=== PATIENT | female | born 2005 | race Caucasian/White ===

== ENCOUNTER 2024-10-13 13:53 | Outpatient (AMB) | payer BC, SELFPAY ==
--- NOTE | 2024-10-13 14:00 | MHC.PC.OV ---
Vital Signs 10/13/24 14:08 Height 5 ft 1.61 in Weight 155 lb 6 oz BMI 28.8 BP 118/64 Blood Pressure Location Rt brachial Position Sitting Pulse 72 Pulse Source Pulse Oximeter Pulse Oximetry (%) 99 Oxygen Delivery Method Room Air Intake Visit Reasons: Est Care/ Physical request Intake Note: New patient visit Allergies Penicillins Allergy (Unknown, Verified 10/13/24 14:01) Hives Tobacco use date assessed: 10/13/24 Dental Screening Dental Screen Date: 10/13/24 Did you have a dental visit in the last 12 months?: Yes Did you have a dental problem in the last 6 months where you did not have access to dental care?: No Was dental information given to patient?: Patient has dentist HPI HPI Comments History of Present Illness Details This is a 18-year-old female with a past medical history of iron-deficiency, PCOS and generalized anxiety disorder presenting to [facility]. She is transferring from pediatrics to adult Medicine. Her last physical exam was 03/27/2024. Ubnf-[id number]-[id number] takes a multivitamin that contains iron. She has mild GI upset if she takes it on an empty stomach. She would like iron levels rechecked. Reports labs were normal at her physical exam earlier this year. Patient was followed by [facility] pediatric endocrinology for PCOS. She was treated with spironolactone which was discontinued due to dizziness and diuresis. Patient says at 1 of the last appointments her sales support consultant was talking about starting Ozempic. Patient was concerned this was due to increased weight. She admits she did put on some weight during college, but she lost much of it, and she exercises regularly and eats very well. Her other symptoms included irregular menses and acne. Her acne is pretty well-controlled, she says, despite having to stop spironolactone. She takes the control pill. She is turning 19 this month. She is not sexually active. She saw a crystal mounter when she was a teenager. This was at [facility]. Patient says she was a bit traumatized because they were trying to assess her, but it was not known at the time that she required hymenectomy, and the experience was extremely painful. She ultimately had the hymenectomy performed at [facility]. She has seen a therapist intermittently since she was 3 years old. Three weeks ago she started seeing a new therapist. She was treated with Lexapro in the past which helped, but it caused weight gain. She is not interested in daily medications at this time. She requests anxiety medication for an upcoming flight to [place]. Her anxiety causes physical symptoms such as nausea and sometimes vomiting, and she is very anxious about throwing up. She sees [facility] for acne. 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 Patient was having some stomach upset recently however she determined she was having too much fiber and decreased the amount in her diet with success. 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 She received a flu vaccine in August. ROS: Constitutional: No unexplained weight loss, fever, chills, fatigue or night sweats. Respiratory: No shortness of breat Cardiovascular: No chest pain Skin: +acne Psychiatric: No depression. See HPI Physical exam: Constitutional: Alert, in no distress. Neck: Supple, Full range of motion. No lymphadenopathy. No palpable thyroid masses. Respiratory: Clear to auscultation. Cardiovascular: S1 S2 regular. No murmurs Extremities: Warm and well perfused. No clubbing, cyanosis or edema. 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 AIDEN (generalized anxiety disorder) PCOS (polycystic ovarian syndrome) Low iron Surgical History (Updated 10/13/24 @ 15:00 by CARLOS MANUEL Tinajero) H/O wisdom tooth extraction H/O knee surgery History of hymenectomy History of ankle surgery H/O wrist surgery Family History (Updated 10/13/24 @ 15:01 by CARLOS MANUEL Tinajero) Maternal Grandmother Anxiety Mother Anxiety Maternal Aunt Congenital heart defect Maternal Grandfather Heart attack Family/Other Breast cancer Other FH: mental illness Social History (Updated 10/13/24 @ 14:03 by Lorene Oconnell CMA) Housing: House Alcohol intake: current Patient Tobacco Use Status: Never used Tobacco e-Cigarette/Vaping Use: Never Used Second Hand Smoke Exposure: No service: No Current occupational status: student Cognitive needs: No Hearing needs: Yes (Hearing loss left ear) Vision needs: No Questionnaire PHQ-9 Over the last 2 weeks, how often have you been bothered by any of the following problems? 1. Little interest or pleasure in doing things: not at all 2. Feeling down, depressed, or hopeless: not at all 3. Trouble falling or staying asleep, or sleeping too much: not at all 4. Feeling tired or having little energy: not at all 5. Poor appetite or overeating: not at all 6. Feeling bad about yourself - or that you are a failure or have let yourself or your family down: not at all 7. Trouble concentrating on things, such as reading the newspaper or watching television: not at all 8. Moving or speaking so slowly that other people could have noticed. Or the opposite - being so fidgety or restless that you have been moving around a lot more than usual: not at all 9. Thoughts that you would be better off or of hurting yourself in some way: not at all Total score: 0 Depression Screening Interpretation: Negative Depression Screening Done: Yes 41061 - PHQ-9 Billing: Yes Source: Developed by Drs. Danial Fitzpatrick, Candi Aldana, Sundeep Yepez and colleagues, with an educational batool from [employer]. Thrive Questionnaire Date Thrive assessed: 10/06/24 I am a: Patient What is your living situation today?: I have a steady place to live Within the past 12 months, did the food you bought not last and you didn't have the money to get more?: Never true Within the past 12 months, did you worry whether your food would run out before you got money to buy more?: Never true Do you have trouble paying for medicines?: No Do you have trouble getting transportation to medical appointments?: No Do you have trouble paying your heating and electricity bill?: No Do you have trouble taking care of your child, family member or friend?: No Do you have trouble with day-to-day activities such as bathing, preparing meals, shopping, managing finances, etc.?: No Are you currently unemployed and looking for a job?: No Are you interested in more education?: Yes Please select the resources that you would like help with: None Currently or been in a relationship where the following occur: No concerns reported THRIVE Score: 0 AUDIT C Alcohol Use Questionnaire (AUDIT-C) 1. How often do you have a drink containing alcohol?: Monthly or less 2. How many drinks containing alcohol do you have on a typical day when you are drinking?: 1 or 2 3. How often do you have six or more drinks on one occasion?: Never Total Score: 1 AIDEN-7 AMB Questionnaire AIDEN-7 Date AIDEN - 7 assessed: 10/13/24 Feeling nervous, anxious, or on edge: 2 = More than half the days Not being able to stop or control worryin = Several days Worrying too much about different things: 1 = Several days Trouble relaxin = Several days Being so restless that it is hard to sit still: 0 = Not at all Becoming easily annoyed or irritable: 0 = Not at all Feeling afraid as if something awful might happen: 0 = Not at all Total AIDEN-7 score (0-4 normal; 5-9 mild; 10-14 moderate; 15-21 severe): 5 Source: Developed by Drs. Danial Fitzpatrick, Candi Aldana, Sundeep Yepez and colleagues, with an educational batool from [employer]. AIDEN-7 Assessment Billing AIDEN-7 Assessment Tool: AIDEN-7 Assessment 68129 Physical exam (Primary Care) Vital Signs: Last Vital Signs Pulse 72 10/13/24 14:08 BP 118/64 10/13/24 14:08 Pulse Ox 99 10/13/24 14:08 Oxygen Delivery Method Room Air 10/13/24 14:08 BMI result Body Mass Index 28.8 Tobacco/Smoking Status: Tobacco use Status Tobacco use date assessed 10/13/24 10/13/24 14:07 Patient Tobacco Use Status Never used Tobacco 10/13/24 14:07 e-Cigarette/Vaping Use Never Used 10/13/24 14:07 PHQ-9: PHQ-9 Score PHQ-9: Total score 0 10/13/24 14:10 Depression Screening Interpretation: Negative Thrive Assessment: Date of Thrive Assessment Date Thrive assessed 10/06/24 10/13/24 14:07 Currently or been in a relationship where the following occur: No concerns reported Coding Level of Care Code New Pt Level 4 (55981) Complex EM visit Add On G2211 Diagnoses Acne vulgaris L70.0 Enlarged vestibular aqueduct of left ear Q16.5 Flying phobia F40.243 AIDEN (generalized anxiety disorder) F41.1 PCOS (polycystic ovarian syndrome) E28.2 Low iron E61.1 Additional Codes AIDEN-7 Assessment Billing - AIDEN-7 Assessment Tool: AIDEN-7 Assessment 89512 ([id number]) PHQ-9 - 06850 - PHQ-9 Billing: Yes ([id number]) Assessment & Plan Assessment & Plan (1) Acne vulgaris: Code(s): L70.0 - Acne vulgaris Category: Medical Plan: Spironolactone discontinued due to side effects. She continues with treatment per Dermatology with topical tretinoin and clindamycin-benzoyl peroxide. She is also on the oral contraceptive pill. (2) Enlarged vestibular aqueduct of left ear: Comment: [facility] Code(s): Q16.5 - Congenital malformation of inner ear Category: Medical Plan: Followed by [facility] ENT. (3) Flying phobia: Code(s): F40.243 - Fear of flying Category: Medical Plan: Patient prescribed lorazepam 0.5-1 mg every 8-12 hours as needed. She will take the 1st dose 60 minutes before her flight. I prescribed an extra tablet that I recommended she try prior to her vacation so she can see how the medication effects her. Advised not to drive, operate heavy machinery or have alcohol the day she uses this medicine. She is traveling with family. (4) AIDEN (generalized anxiety disorder): Code(s): F41.1 - Generalized anxiety disorder Category: Medical Plan: The patient will continue therapy and follow up if symptoms remain uncontrolled and/or if she wishes to revisit daily medication for anxiety. (5) PCOS (polycystic ovarian syndrome): Code(s): E28.2 - Polycystic ovarian syndrome Category: Medical Plan: The patient is referred to adult endocrinology provider. I referred to [facility] for continuity. They will have access to her pediatric sales support consultant notes. Patient is also referred to Gynecology, Dr. Donohue. (6) Low iron: Code(s): E61.1 - Iron deficiency Category: Medical Plan: Patient is taking multivitamin plus iron. She has a lot of iron rich foods in her diet. Recheck CBC and iron studies. Plan Follow up in March 2025 for a physical exam. Orders: Orders IRON PROFILE Today E61.1 - Iron deficiency Complete Blood Count Auto Diff Today E61.1 - Iron deficiency Ferritin Today E61.1 - Iron deficiency Referrals ENGINEERING INSPECTION ASSISTANT Referral Z01.419 - Encounter for gynecological examination (general) (routine) without abnormal findings Endocrinology Referral E28.2 - Polycystic ovarian syndrome Medications: New lorazepam Take the first dose 60 minutes before flying. 0.5 - 1 mg (0.5 - 1 x 1 mg) PO Q8-12H PRN 5 tabs 0RF anxiety
[2024-10-13 14:08] VITALS: BP 118/64; PULSE 72; O2SAT 99; BMI 28.8
--- OUTSIDE RECORDS SUMMARY | 2024-10-15 15:59 | XMS_ITS ---
Author Name [facility] Organization Unknown Immunizations Vaccine Date Source Lot Number Status Influenza Inactivated/Split Preservative Free IM 08/17/2022 [facility] [id number] completed Influenza, Quadrivalent (FLU CELVAX) MDCK, Preservative Free IM 07/31/2023 [facility] [id number] completed
== END 2024-10-13 14:45 | disposition home or self-care (01) ==
PROVIDERS: PCP Physician Assistant Medical; Visit Provider Physician Assistant Medical
DX: L70.0 Acne vulgaris (principal); Q16.5 Congenital malformation of inner ear; F40.243 Fear of flying; F41.1 Generalized anxiety disorder; E28.2 Polycystic ovarian syndrome; E61.1 Iron deficiency

== ENCOUNTER → 2024-10-13 13:53 | Outpatient (BNVA) | payer BC, SELFPAY | PROVIDERS: PCP Physician Assistant Medical; Visit Provider Physician Assistant Medical | DX: L70.0 Acne vulgaris (principal); F40.243 Fear of flying; F41.1 Generalized anxiety disorder; E28.2 Polycystic ovarian syndrome; E61.1 Iron deficiency; Q16.5 Congenital malformation of inner ear | CPT/HCPCS: 96127 ==

== ENCOUNTER 2024-10-16 12:43 | Outpatient (REF) | payer BC, SELFPAY ==
[2024-10-16 14:16] LABS: MANUAL DIFF FLAG NO
[2024-10-16 14:25] LABS: Basophils Percent Auto 0.3 % (0-2); Eosinophils Absolute Auto 0.1 X10*3/uL (0.0-0.4); Eosinophils Percent Auto 0.8 % (0-4); Hematocrit 36.2 % (37.0-47.0); Hemoglobin 11.8 g/dl (12.0-16.0); Imm Gran Abs Auto 0.01 X10*3/uL (0.00-0.03); Imm Gran Pct Auto 0.2 % (0.0-0.4); Lymphocytes Absolute Auto 2.6 X10*3/uL (1.2-4.9); Lymphocytes Percent Auto 39.1 % (20-40); Mean Corpuscular HGB Conc 32.6 g/dl (31.0-35.0); Mean Corpuscular Hemoglobin 28.6 pg (27.0-33.0); Mean Corpuscular Volume 87.9 fL (80.0-98.0); Mean Platelet Volume 10.3 fL (9.4-12.3); Monocytes Absolute Auto 0.5 X10*3/uL (0.1-1.2); Monocytes Percent Auto 7.9 % (2-11); Neutrophils Absolute Auto 3.4 x10*3/uL (2.0-8.3); Neutrophils Percent Auto 51.7 % (45-73); Platelet Count 285 X10*3/uL (160-400); Red Blood Count 4.12 X10*6/uL (4.20-5.50); Red Cell Distribution Width 12.7 % (11.0-16.0); White Blood Count 6.6 X10*3/uL (4.8-10.8)
[2024-10-16 14:41] LABS: Iron 118 mcg/dL (30-160); Percent Iron Saturation 37 % (15-50); Total Iron Binding Capacity 319 mcg/dL (228-428); Unsaturated Iron Binding 201 ug/dL
[2024-10-16 14:57] LABS: Ferritin 45 ng/mL (10-122)
== END 2024-10-16 12:44 | disposition home or self-care (01) ==
LOC: HO.WFDLDS 12:43
PROVIDERS: Visit Provider Physician Assistant Medical
DX: E61.1 Iron deficiency (principal)
CPT/HCPCS: 36415; 82728; 83540; 85025

== ENCOUNTER 2024-12-01 14:27 | Outpatient (AMB) | payer BC, SELFPAY ==
--- NOTE | 2024-12-01 14:25 | MHC.PC.OV ---
Intake Visit Reasons: medication check Intake Note: follow up on prozac Allergies Penicillins Allergy (Unknown, Verified 12/01/24 14:25) Hives Tobacco use date assessed: 10/13/24 Dental Screening Dental Screen Date: 10/13/24 HPI HPI Comments History of Present Illness Details This is a 18-year-old female with a past medical history of iron-deficiency, PCOS and generalized anxiety disorder presenting to discuss anxiety medication. She endorses chronic anxiety since a young age. She has seen a therapist intermittently since she was 3 years old. She is seeing a therapist consistently now. She has been treated with Lexapro in the past, but she was concerned it may have contributed to weight gain her freshman year of college. She initially declined daily medications, but she then messaged that she would like to try starting medication again for anxiety. She was started on fluoxetine, but she experienced increased anxiety on the medication. She tapered off of it after speaking with me. She went on a trip to [place] and used lorazepam for the flights which was effective. She spoke about this all with her therapist and family, and she would like to try going back on Lexapro. She thinks her weight gain may have been related to stopping competitive sports when she started college. She is attending [employer]. 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 She message because she was having indigestion and reflux, and the triage nurse responded to her inquiry. Patient says her symptoms resolved. She thinks it was due to a change in her eating habits when she was in [place] for 12 days. ROS: Constitutional: No unexplained weight loss, fever, chills Gastrointestinal: No anorexia, nausea, vomiting or diarrhea. No abdominal pain or blood in stool. Psychiatric: No SI/HI. 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 AIDEN (generalized anxiety disorder) PCOS (polycystic ovarian syndrome) Low iron Surgical History (Updated 10/13/24 @ 15:00 by CARLOS MANUEL Tinajero) H/O wisdom tooth extraction H/O knee surgery History of hymenectomy History of ankle surgery H/O wrist surgery Family History (Updated 10/13/24 @ 15:01 by CARLOS MANUEL Tinajero) Maternal Grandmother Anxiety Mother Anxiety Maternal Aunt Congenital heart defect Maternal Grandfather Heart attack Family/Other Breast cancer Other FH: mental illness Social History (Updated 10/13/24 @ 14:03 by Lorene Oconnell CMA) Housing: House Alcohol intake: current Patient Tobacco Use Status: Never used Tobacco e-Cigarette/Vaping Use: Never Used Second Hand Smoke Exposure: No service: No Current occupational status: student Cognitive needs: No Hearing needs: Yes (Hearing loss left ear) Vision needs: No Questionnaire Thrive Questionnaire Date Thrive assessed: 10/06/24 I am a: Patient What is your living situation today?: I have a steady place to live Within the past 12 months, did the food you bought not last and you didn't have the money to get more?: Never true Within the past 12 months, did you worry whether your food would run out before you got money to buy more?: Never true Do you have trouble paying for medicines?: No Do you have trouble getting transportation to medical appointments?: No Do you have trouble paying your heating and electricity bill?: No Do you have trouble taking care of your child, family member or friend?: No Do you have trouble with day-to-day activities such as bathing, preparing meals, shopping, managing finances, etc.?: No Are you currently unemployed and looking for a job?: No Are you interested in more education?: Yes Please select the resources that you would like help with: None Currently or been in a relationship where the following occur: No concerns reported THRIVE Score: 0 AUDIT C Alcohol Use Questionnaire (AUDIT-C) 2. How many drinks containing alcohol do you have on a typical day when you are drinking?: 1 or 2 3. How often do you have six or more drinks on one occasion?: Never Total Score: 0 AIDEN-7 AMB Questionnaire AIDEN-7 Date AIDEN - 7 assessed: 10/13/24 Source: Developed by Drs. Danial Fitzpatrick, Candi Aldana, Sundeep Yepez and colleagues, with an educational batool from [employer]. Physical exam (Primary Care) Tobacco/Smoking Status: Tobacco use Status Tobacco use date assessed 10/13/24 12/01/24 14:26 Patient Tobacco Use Status Never used Tobacco 12/01/24 14:26 e-Cigarette/Vaping Use Never Used 12/01/24 14:26 Thrive Assessment: Date of Thrive Assessment Date Thrive assessed 10/06/24 12/01/24 14:26 Currently or been in a relationship where the following occur: No concerns reported Telehealth Telehealth Telehealth Platform: Telephone Location of provider rendering services: practice address Location of patient: address on file Patient Identification confirmed using: Name, : Yes Telehealth method: voice only Patient verbally consented to treatment: Yes Patient verbally consented to billing insurance company: Yes Patient informed of any privacy concerns related to visit: Yes Minutes spent on Phone/Video with Pt.: 10 Coding Level of Care Code Tele Est Pt Level 3 (30625) Complex EM visit Add On G2211 Diagnoses AIDEN (generalized anxiety disorder) F41.1 Assessment & Plan Assessment & Plan (1) AIDEN (generalized anxiety disorder): Code(s): F41.1 - Generalized anxiety disorder Category: Medical Plan Continue therapy. She is working on building a tool box for coping strategies for anxiety. She would like to retry Lexapro. We reviewed side effects, black box warning and administration. She will start 5 mg daily. We will follow up in 4-6 weeks to assess dose and efficacy. She will contact me prior to that appointment if she is having any difficulties with the medication or side effects. Medications: New escitalopram oxalate 5 mg PO DAILY 30 tabs 1RF Discontinued fluoxetine Discontinued Reason: Doctor's Order 20 mg PO QAM 90 tabs 1RF
--- OUTSIDE RECORDS SUMMARY | 2024-12-01 18:54 | XMS_ITS | Clinical Summary ---
Author Organization [facility] Address [address] [place] [address] Care Team Providers Care Team Guide Name Role Phone Unavailable Primary Care Provider Unavailabl e Immunizations Name Administration Dates Next Due Influenza Inactivated/Split Preservative Free IM 08/17/2022 Influenza, Quadrivalent (FLU CELVAX) MDCK, Preservative Free IM 07/31/2023 Social History Tobacco Use Types Packs/Day Years Used Date Smoking Tobacco: Never Assessed Sex and Gender Information Value Date Recorded Sex Assigned at Female 07/31/2023 11:52 AM EDT Gender Identity Female 07/31/2023 11:52 AM EDT Sexual Orientation Heterosexual (straight) 07/31 11:52 AM EDT Plan of Treatment Health Maintenance Due Date Last Done Comments Hepatitis C Virus Screening 2003 HIV Screening 2016 HPV Vaccines (1 - 3-dose series) 2018 DTaP/Tdap/Td Vaccines (1 - Tdap) 2022 Hepatitis B Vaccines (1 of 3 - 19+ 3-dose series) 2022 Influenza Vaccine 06/05/2024 07/31/2023, , 08/04/2021, Additional history exists COVID-19 Vaccine (1 - 2023-25 season) 2024 Pap Smear (Ages 21-65) 2024 Pneumococcal Vaccine: Pediatric (0-5 Years) and At-Risk Patients (6 to 49 Years) Aged Out No longer eligible based on patient's age to complete this topic
--- OUTSIDE RECORDS SUMMARY | 2024-12-01 18:54 | XMS_ITS | Encounter Summary ---
Author Organization [facility] Address [address] [place] [phone] Phone Care Team Providers Care Automatic Spreader Operator Name Role Phone Bailey Isaac NP Primary Care Provider [phone] Reason for Visit * Reason Comments Med Refill Encounter Details Date Type Department Care Team (Late st Contact Info) Description 01/24/2023 Refill [facility] [address] [place] [address] Bailey Isaac NP [address] [place] [address] Anxiety Social History Tobacco Use Types Packs/Day Years Used Date Smoking Tobacco: Never Alcohol Use Standard Drinks/Week Comments Never 0 (1 standard drink = 0.6 oz pur e alcohol) Hunger/Food Answer Date Recorded In the last 12 months, did y ou or your family ever eat less than you felt you should because there wasn't enough money for food? No 11/17/2021 Stable Housing Answer Date Recorded Are you worried that in the next 2 months you may not have stable housing? No 11/17/2021 Transportation Concerns Answer Date Rec orded In the last 12 months, have you or your family ever had to go without healthcare because you didn't have a way to get there? No 11/17/2021 Hazards in Home Answer Date Recorded Think about the place you li ve. Do you have problems with any of the following? Pests (mice or roaches), mold, no/not working smoke detectors, water leaks, no window guards. No 2021 Financing Utilities Answer Date Recorde d In the last 12 months, has t he electric, gas, oil, or water company threatened to shut off your services in your home? No 11/17/2021 Safety at Home Answer Date Recorded Are you or your family worried about feeling saf e in your home? No 11/17/2021 Outside Support Answer Date Recorded Do you feel that you need mo re support from other people or programs to help you care for yourself or your family? No 11/17/2021 Understanding Health Concerns Answer Da te Recorded Do you need help understandi ng your or your child's healthcare needs (diagnosis, medications, plan, etc.)? No 11/17/2021 Financing Health Concerns Answer Date R ecorded In the last 12 months, was t here a time when your child needed to see a doctor or get medications or supplies but could not because of cost? No 11/17/2021 Missing School or Work Answer Date Chip rded Did you or your child miss s chool or work because of a health problem that could have been avoided? No 11/17/2021 Comments No Sex and Gender Information Value Date Recorded Sex Assigned at Not on file Legal Sex Female 6:10 PM EDT Gender Identity Female 06/08/2021 5:55 PM EDT Sexual Orientation Straight 11/17/2021 4: 07 PM EST documented as of this encounter Miscellaneous Notes * Telephone Encounter - Bailey Isaac NP - 01/25/2023 10:59 AM EDT Rx reviewed, approved, and sent to pharmacy. * Telephone Encounter - Anat Ferrer CMA - 01/24/2023 8:17 PM EDT Request for refill on escitalopram 10 MG tablet Last refill- 09/26/22 Last med check- 02/28/22 Forward to Bobbi documented in this encounter Plan of Treatment Not on file documented as of this encounter Visit Diagnoses Diagnosis Anxiety Anxiety state, unspecified documented in this encounter Care Teams Automatic Spreader Operator Relationship Specialty Start Date End Date Bailey Isaac NP [address] [place] [address] PCP - General Pediatrics 08/26/21 11/19/24 documented as of this encounter
--- OUTSIDE RECORDS SUMMARY | 2024-12-01 18:54 | XMS_ITS | Encounter Summary ---
Author Organization [facility] Address [address] [place] [address] Phone Care Team Providers Care Application Systems Engineer Name Role Phone Bailey Isaac NP Primary Care Provider [phone] Reason for Visit * Reason Comments Med Refill Encounter Details Date Type Department Care Team (Late st Contact Info) Description 02/24/2022 Refill [facility] [address] [place] [address] Bailey Isaac NP [address] [place] [address] Anxiety Social History Tobacco Use Types Packs/Day [...] Telephone Encounter - Bailey Isaac NP - 02/24/2022 3:41 PM EDT Rx sent for 30 day supply as Radha just started the med, not sure if we will be making increases * Telephone Encounter - Yancy Hu MA - 02/24/2022 1:23 PM EDT 90 days supply request for Escitalopram Last [facility] 11/17/21 Med check 02/02/22 Last refill 02/02/22 Upcoming appt is 02/28/22 They highlighted #45 but that is a 90 days supply Please review documented in this encounter Plan of Treatment Not on file documented as of this encounter Visit Diagnoses Diagnosis Anxiety Anxiety state, unspecified documented in this encounter Care Teams Application Systems Engineer Relationship Specialty Start Date End Date Bailey Isaac NP 7 [facility] [place] [address] PCP - General Pediatrics 08/26/21 11/19/24 documented as of this encounter
--- OUTSIDE RECORDS SUMMARY | 2024-12-01 18:54 | XMS_ITS | Encounter Summary ---
Author Organization [facility] Address [address] [place] [address] Phone Care Team Providers Care Casing Mixer Name Role Phone Bailey Isaac NP Primary Care Provider [phone] Encounter Details Date Type Department Care Team (Late st Contact Info) Description 12/28/2009 Documentation [facility] Family Medicine [facility] [place] [address] Family Medicine, Physician [facility] [place], [place] [id number] Social History Tobacco Use Types Packs/Day Years Used Date Smoking Tobacco: Never Assessed Comments Unknown Sex and Gender Information Value Date Recorded Sex Assigned at Not on file Legal Sex Female 6:10 PM EDT Gender Identity Female 06/08/2021 5:55 PM EDT Sexual Orientation Straight 11/17/2021 4: 07 PM EST documented as of this encounter Plan of Treatment Not on file documented as of this encounter Visit Diagnoses Not on filedocumented in this encounter Care Teams Casing Mixer Relationship Specialty Start Date End Date Bailey Isaac NP [address] [facility] [place] [address] PCP - General Pediatrics 08/26/21 11/19/24 documented as of this encounter
--- OUTSIDE RECORDS SUMMARY | 2024-12-01 18:54 | XMS_ITS | Encounter Summary ---
Author Organization [facility] Address [address] [place] [address] Phone Care Team Providers Care Accounts Receivable Accountant Name Role Phone Bailey Isaac NP Primary Care Provider [phone] Encounter Details Date Type Department Care Team (Late st Contact Info) Description 03/24/2018 Conversion Encounter [facility] [address] [place] [address] Danial Brooks MD [address] [place] [address] Social History Tobacco Use Types Packs/Day Years [...] on filedocumented in this encounter Care Teams Accounts Receivable Accountant Relationship Specialty Start Date End Date Bailey Isaac NP [address] [place] [address] PCP - General Pediatrics 10/22/21 1/15/25 documented as of this encounter
--- OUTSIDE RECORDS SUMMARY | 2024-12-01 18:54 | XMS_ITS | Clinical Summary ---
Author Organization [facility] Address [address] [place] [address] Phone Care Team Providers Care Workers Compensation Attorney Name Role Phone Unavailable Primary Care Provider Unavailabl e Allergies Active Allergy Reactions Criticality Noted Date Comments Dust Mite Extract 11/16/2020 Penicillins Hives 07/05/2018 Medications tretinoin 0.05 % cream APPLY PEA-SIZED AMOUNT TO FACE AT BEDTIME AND BACK EVERY MORNING 3 8 Active Probiotic Product (PROBIOTIC-10 PO) Take by mouth. Activ e Multiple Vitamins-Minera ls (MULTIVITAMIN ADULTS PO) Take by mouth. Acti ve clindamycin-manuelito zoyl peroxide 1-5% gel APPLY A PEA SIZED AMOUNT TO THE FACE EVERY MORNING , MAY USE NIGHTLY TO BACKS OF LEGS 1 Active naproxen 500 MG tabletIndicatio ns:Dysmenorrhea TAKE 1 TABLET BY MOUTH TWICE A DAY 60 tablet 3 Active Additional Information Patient not taking.Reported on 03/27/2024 Qrf-Jx-Mzzdpt 0.18/0.215/0.25 MG-25 MCG per tabletIndicatio ns:Hirsutism TAKE 1 TABLET BY MOUTH EVERY DAY 84 tablet 3 4 Active Active Problems Problem Noted Date Diagnosed Date Lactose intolerance 07/03/2023 Anxiety 11/18/2020 Overview (11/18/2020): Working with Emma Beckham. Assessment & Plan (03/27/2024 2:26 PM EDT): Doing very well off meds. Assessment & Plan (04/25/2023 5:30 PM EDT): Has tolerated the wean of Lexapro to 5 mg, and will plan to discontinue. Continue working with therapist, and to let me know if anxiety returns to its previous level at any point. Assessment & Plan (03/20/2023 1:51 PM EDT): Has been working with therapist who sees positive changes. She and Radha feel comfortable with her weaning Lexapro and attempting to d/c. Will decrease to 5 mg, f/u in 1 mo. Assessment & Plan (03/01/2022 8:15 PM EDT): Responding well to 5 mg of Lexapro. Recommended checking in sometime during the summer before she goes to college. If needed in the future, can certainly increase the Lexapro. Assessment & Plan (02/02/2022 5:02 PM EDT): Radha has done a great job of putting the tools into practice that she has learned in therapy. It seems at this point she would benefit from addition of an SSRI, and given positive response to Lexapro in family member, will start Radha with 5 mg of Lexapro. Will f/u in 3 weeks in office for med check, to contact me sooner with any questions or concerns. Reviewed with Radha to inform mom and me right away of any worsening symptoms, agitation, depression, suicidality after starting meds. Assessment & Plan (11/21/2021 9:15 AM EST): Sees Emma Beckham as needed, which has been very helpful. Dysmenorrhea 11/17/2020 Assessment & Plan (02/02/2022 5:01 PM EDT): Will restart naproxen (Dr. Broderick would have her start it 1-2 days prior to period starting) before considering other options such as changing to an OCP with a higher estrogen component. 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 Doing electrolysis. Labs reassuring. Evaluated by pedi endocrinology. Prescribed [id number] lo and spironolactone. Assessment & Plan (03/20/2023 1:50 PM EDT): Considering coming off of spironolactone, will discuss with jazz musician. 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 The hearing in association with these structural abnormalities may fluctuate and/or worsen overtime. This may happen suddenly or gradually. Patients with this type of anatomy appear to be more likely to have a sudden change in their hearing secondary to head trauma compared to patients who have normal anatomy. There are also many anecdotal reports of change and/or fluctuations in the hearing with flying or scuba diving. There may be changes in the Pendred syndrome gene, also called the PDS or [id number] gene, in patients who have unilateral or bilateral enlarged vestibular aqueducts. F/U with Dr. Enriquez- in 3 months- who has a large population of patient?s with GISELLE and is an expert in genetic causes for hearing loss. Repeat audiogram PT the appointment. Recommended that Radha?s sibling s have an audiogram and that Radha be seen by pediatric ophthalmology to assess vision and eye health. Allergic rhinitis 11/28/2016 Irregular menstrual cycle 11/06/2016 Assessment & Plan (03/20/2023 1:50 PM EDT): Regular on OCP. Assessment & Plan (11/21/2021 9:16 AM EST): Regular on OCP. Assessment & Plan (11/18/2020 2:43 PM EST): Doing well on OCP. Acne 09/27/2016 Assessment & Plan (03/27/2024 2:29 PM EDT): Off spironolactone, managed well with OCP and topicals. Assessment & Plan (11/21/2021 9:15 AM EST): Doing well in OCP. If the menstrual migraines continue to be problematic, could consider adjusting OCP. 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 Dysfunction of eustachian tube 03/24/2015 Accessory navicular bone of right foot Overview (12/02/2018): Evaluated by Sofi, has a shoe insert Resolved Problems Problem Noted Date Diagnosed Date Resolved Date Palpitations in pediatric patient 09/02/2019 11/18/2020 Overview (11/18/2020): Tachycardia/palpitations (05/21); EKG and to cardiology - seen by Dr. Smallwood and also had a consult with [facility] cardiology, per parents' preference - holter monitor ordered, suspect SVT. Episodes of tachycardia on holter monitor showed NSR. Per mom, will repeat the monitor,and anticipate not needing cardiology f/u. 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 Limited exam due to pain. Longitudinal vaginal septum not ruled out. Pelvic floor dysfunction and vaginismus likely contributing to pain. Will have an US to further eval, likely will need surgical intervention, and pelvic floor PT/desensitization. Plantar wart of right foot 01/01/2018 0 11/18/2020 Body mass index (bmi) pediat tristen, 85th percentile to less than 95th percentile for age 0111/28/2016 11/18/2020 Overview (03/02/2023): Diagnosis load February 2023 Hyperhidrosis of hands 11/28/201611/18 Iron deficiency anemia 11/28/201603/27 Assessment & Plan (04/25/2023 5:29 PM EDT): Hemoglobin persistently low, will check CBC and iron. Assessment & Plan (03/20/2023 1:50 PM EDT): Start MVI with iron, will recheck in 1 mo. Encounters Date Type Department Care Team Description 11/20/2024 Telephone [facility] [address] [address] Bailey Isaac NP Release of Records from Last 3 Months Immunizations Name Administration Dates Next Due COVID-19 Moderna, monovalent , 12+ years 11/12/2021 DTaP 11/23/2008, 5,05/03/2004,02/28,01/01/2004 H1N1 10/04/2009,08/31/2009 HPV Vaccine 9 Valent 06/01/2015 HPV, Quadrivalent 01/29/2015,11/27/2014 Hep A, ped/adol 12/03/2018,12/25/2017 Hep B, ped/adol 08/01/2004,2003,2003 Hib (PRP-T) 02/06/2005, 4,02/29/2004,01/21 IPV 11/23/2008, 4,03/25/2004,01/01 Influenza 08/27/2007 Influenza, injectable, MDCK, preservative free, quadrivalent 07/31/2023 Influenza, injectable, quadrivalent 08/05,08/22/2016,08/19/2012,08/05,07/23/2010,09/05/2008 Influenza, injectable, quadr ivalent, preservative free 08/04/2021,07/16/2020,08/13/2019,08/27,07/31/2015,08/08/2014,08/12/2013 ,10/21/2009 Influenza, injectable, trivalent 08/17/2022 Influenza, injectable, triva lent, preservative free 08/09/2006,08/22/2005,09/20/2004,08/16 MMR 11/18/2007,11/08/2004 Meningococcal B Bexsero 03/20/2023 Meningococcal B Trumenba 05/19/2022 Meningococcal Conj (Menactra) MCV4P 12/04/2019,0 11/27/2014 Pneumococcal Conjugate 03/13/2005,2003,03/25/2004,01/21 Tdap 11/27/2014 Varicella 11/18/2007,11/08/2004 Family History Medical History Relation Name Comments No Known Problems Father Valvular heart disease Maternal Grandfather pericarditis with bicupsid aortic valve Lung cancer Maternal Grandmother No Known Problems Mother mom was sc reened and does not have a bicuspid aortic valve No Known Problems Paternal Grandfather No Known Problems Paternal Grandmother No Known Problems Sister Oziel Relation Name Status Comments Father Alive healthy Maternal Grandfather pericar ditis, bicuspid aortic valve Maternal Grandmother Alive lynn herrera of the [employer] vessels Mother Alive mother was eval uated by cardiology and does not have a bicupsid aortic valve (runs in her family) Paternal Grandfather Alive healthy Paternal Grandmother Alive healthy Sister Oziel Alive Social History Tobacco Use Types Packs/Day Years Used Date Smoking Tobacco: Never Smokeless Tobacco: Never Tobacco Cessation:Counseling Given: Not Answered Alcohol Use Standard Drinks/Week Comments Never 0 (1 standard drink = 0.6 oz pur e alcohol) Hunger/Food Answer Date Recorded In the last 12 months, did y ou or your family ever eat less than you felt you should because there wasn't enough money for food? No 03/25/2024 Stable Housing Answer Date Recorded Are you worried that in the next 2 months you may not have stable housing? No 03/25/2024 Transportation Concerns Answer Date Rec orded In the last 12 months, have you or your family ever had to go without healthcare because you didn't have a way to get there? No 03/25/2024 Hazards in Home Answer Date Recorded Think about the place you li ve. Do you have problems with any of the following? Pests (mice or roaches), mold, no/not working smoke detectors, water leaks, no window guards. No 2023 Financing Utilities Answer Date Recorde d In the last 12 months, has t he electric, gas, oil, or water company threatened to shut off your services in your home? No 03/25/2024 Safety at Home Answer Date Recorded Are you or your family worried about feeling saf e in your home? No 03/25/2024 Outside Support Answer Date Recorded Do you feel that you need mo re support from other people or programs to help you care for yourself or your family? No 03/25/2024 Understanding Health Concerns Answer Da te Recorded Do you need help understandi ng your or your child's healthcare needs (diagnosis, medications, plan, etc.)? No 03/25/2024 Financing Health Concerns Answer Date R ecorded In the last 12 months, was t here a time when your child needed to see a doctor or get medications or supplies but could not because of cost? No 03/25/2024 Missing School or Work Answer Date Chip rded Did you or your child miss s chool or work because of a health problem that could have been avoided? No 03/25/2024 Child Education Answer Date Recorded Do you have concerns about y our/your child's learning or behavior in school, preschool, or daycare? No 03/25/2024 Comments No Sex and Gender Information Value Date Recorded Sex Assigned at Not on file Legal Sex Female 6:10 PM EDT Gender Identity Female 06/08/2021 5:55 PM EDT Sexual Orientation Straight 11/17/2021 4: 07 PM EST Last Filed Vital Signs Vital Sign Reading Time Taken Comments Blood Pressure 116/64 03/27/2024 1:04 PM EDT Pulse 80 05/31/2017 12:00 AM EDT Temperature 36.1 ??C (97 ??F) 07/20/2022 10:51 AM EDT Respiratory Rate - - Oxygen Saturation 98% 07/20/2022 10:51 AM EDT Inhaled Oxygen Concentration - - Weight 72.4 kg (159 lb 9.6 oz) 03/27/2024 1:04 P M EDT Height 157.5 cm (5' 2 ) 03/27/2024 1:04 PM EDT Body Mass Index 29.19 03/27/2024 1:04 PM EDT Plan of Treatment Health Maintenance Due Date Last Done Comments Men B Vaccine (2 of 2 - Trum enba SCDM 2-dose series) 07/21/2023 03/20/2023, 05/19/2022 COVID-19 Vaccine (4 - 2023-2 5 season) 2024 11/12/2021, 03/19/2021, 02/25/2021 Chlamydia and Gonorrhea Screening 11/05/2024 020 DTaP,Tdap,and Td Vaccines (7 - Td or Tdap) 11/27/2024 11/27/2014, 11/23/2008, 02/06/2005, Additional history exists Hepatitis B Vaccines Completed 08/01/2004, 2003, 2003 HIB Vaccines Completed 02/06/2005, 04/06, 02/29/2004, Additional history exists Pneumococcal Vaccine Completed 03/13/2005, 08/16/2004, 03/25/2004, Additional history exists MMR Vaccines Completed 11/18/2007, 11/08/2004 Varicella Vaccines Completed 11/18/2007, 11/08/2004 IPV Vaccines Completed 11/23/2008, 07/07, 03/25/2004, Additional history exists HPV Vaccines Completed 06/01/2015, 01/04, 11/27/2014 Hepatitis A Vaccines Completed 12/03/2018, 12/25/19 18 Meningococcal Vaccine Completed 12/04/2019, 015 Influenza Vaccines Completed 08/13/2024, 0 07/31/2023, 08/17/2022, Additional history exists Procedures * Due to [place] Personal On Demand law, this organization might not be sharing sensitive test results. Procedure Name Priority Date/Time Associated Diagnosis Comments CHLAMYDIA AND GONORRHEA, AMPLIFIED Routine 12/04/2019 4:30 PM EST Encounter for routine child health examination without abnormal findings from Last 3 Months or Most Recently Relevant to Health Maintenance Results * Due to [place] Personal On Demand law, this organization might not be sharing sensitive test results. * Chlamydia and Gonorrhea, Amplified (12/04/2019 4:30 PM EST) Chlamydia Trachomatis, DNA Probe NEGATIVE (NEG) [facility] Comment: No Chlamydia Trachomatis RNA detected in this patient's sample ? (REFERENCE RANGE/NORMAL VALUE: NOT DETECTED) ? Note: This test uses baby attendant- mediated amplification method to detect rRNA from C. Trachomatis URINE GC AMP PROBE NEGATIVE (NEG) [facility] Comment: No Neisseria Gonorrhoeae RNA detected in this patient's sample ? (REFERENCE RANGE/NORMAL VALUE: NOT DETECTED) ? NOTE: This test uses baby attendant-mediated amplification method to detect rRNA from N.Gonorrhoeae. A negative result does not preclude infection. In the case of a negative urine result, testing of an endocervical(female) or urethral (male) specimen is recommended if there is high clinical suspicion of infection. Due to very high sensitivity of Nucleic Acid Amplification Test, false positive results may occur. Therefore, specimen handling is extremely important. In patients in whom the disease is unlikely, additional sample for testing should be considered after an initial positive result. The performance characteristics of this test have not been evaluated in children. The Aptima Combo2 assay is not intended for the evaluation of suspected sexual abuse or for other medico-legal indications. The ordering provider should assess if the patient had consensual sex without risk of sexual abuse. Consult the [facility] if needed. Contact phone number . Therapeutic failure or success cannot be determined with the Aptima Combo2 assay since nucleic acid may persist following appropriate antimicrobial therapy. The Centers for Disease Control and Prevention (CDC) recommends confirmatory retesting using culture or a different nucleic acid amplification test when positive results occur, if indicated. Testing performed or reported by [facility], a Service of [facility], [address] [place] [address] Pradip Winston MD, Family Educator Urine 12/04/2019 4:30 PM EST 12/04/2019 10:06 PM EST Zo Hatfield MD LAB MICROBIOLOGY - GENERAL RASHIDA LAO Final Result [facility] from Last 3 Months or Most Recently Relevant to [place] [address] [facility] [place] [address] [facility]
--- OUTSIDE RECORDS SUMMARY | 2024-12-01 18:54 | XMS_ITS | Encounter Summary ---
Author Organization [facility] Address [address] [place] [phone] Phone Care Team Providers Care Body Liner Name Role Phone Bailey Isaac NP Primary Care Provider [phone] Encounter Details Date Type Department Care Team (Late st Contact Info) Description 11/29/2009 Documentation [facility] [place] [facility] [place] [address] Family Medicine, Physician [facility] [place] [address] Social History Tobacco Use Types Packs/Day Years [...] on filedocumented in this encounter Care Teams Body Liner Relationship Specialty Start Date End Date Bailey Isaac NP [address] [facility] [place] [address] PCP - General Pediatrics 08/26/21 11/19/24 documented as of this encounter
--- OUTSIDE RECORDS SUMMARY | 2024-12-01 18:54 | XMS_ITS | Encounter Summary ---
Author Organization [facility] Address [address] [place] [address] Phone Care Team Providers Care Ceramic Design Engineer Name Role Phone Unavailable Primary Care Provider Unavailabl e Reason for Visit * Reason Onset Date Comments Release of Records 11/20/2024 Encounter Details Date Type Department Care Team (Late st Contact Info) Description 11/20/2024 Telephone [facility] [address] [place] [address] Bailey Isaac NP [address] [place] [address] Release of Records Social History Tobacco Use Types Packs/Day Years Used Date Smoking Tobacco: Never Smokeless Tobacco: Never Alcohol Use Standard Drinks/Week Comments [...] encounter Miscellaneous Notes * Telephone Encounter - Bobbi Amaya - 11/20/2024 11:04 AM EST Release received for records to be released to [facility] [address] [place] [id number] Records Printed and faxed to [phone] documented in this encounter Plan of Treatment Not on file documented as of this encounter Visit Diagnoses Not on filedocumented in this encounter
== END 2024-12-01 15:14 | disposition home or self-care (01) ==
LOC: HO.HMCFM 14:27
PROVIDERS: PCP Physician Assistant Medical; Visit Provider Physician Assistant Medical
DX: F41.1 Generalized anxiety disorder (principal)

== ENCOUNTER 2025-01-12 14:55 | Outpatient (AMB) | payer BC, SELFPAY ==
--- NOTE | 2025-01-12 15:00 | A.OFFPC_ITS ---
Vital Signs 01/12/25 15:04 Height 5 ft 1.61 in Weight 155 lb 4 oz BMI 28.8 BP 128/70 Blood Pressure Location Rt brachial Position Sitting Pulse 82 Pulse Source Pulse Oximeter Pulse Oximetry (%) 97 Oxygen Delivery Method Room Air Intake Visit Reasons: 4-6 week med follow up Allergies Penicillins Allergy (Unknown, Verified 01/12/25 15:09) Hives Tobacco use date assessed: 01/12/25 Dental Screening Dental Screen Date: 01/12/25 Did you have a dental visit in the last 12 months?: Yes Did you have a dental problem in the last 6 months where you did not have access to dental care?: No Was dental information given to patient?: Patient has dentist HPI HPI Comments History of Present Illness Details This is a 19-year-old female with a past medical history of iron- deficiency, PCOS and generalized anxiety disorder presenting to discuss anxiety medication. Anxiety- She endorses chronic anxiety since a young age. She has seen a therapist intermittently since she was 3 years old. She is seeing a therapist consistently now. Prozac caused increased anxiety. She is now on lexapro 5 mg and is doing very well. Reports more than 80% reduction in anxiety symptoms. No recent panic attacks. Denies side effects on the medication other than nausea the first 3 days. She is attending [employer]. 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 She has a rash on her shoulders and upper arms. No pain or itching. Noticed this in [place] on vacation recently, but she thinks she also had it last Summer. She called her dermatology, but they can't see her until April. ROS: Constitutional: No unexplained weight loss, fever, chills Skin: see HPI Psychiatric: No SI/HI. Physical exam: Constitutional: Alert, in no distress. Respiratory: Clear to auscultation. Cardiovascular: S1 S2 regular. No murmurs. 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 AIDEN (generalized anxiety disorder) PCOS (polycystic ovarian syndrome) Low iron Surgical History H/O wisdom tooth extraction H/O knee surgery History of hymenectomy History of ankle surgery H/O wrist surgery Family History Maternal Grandmother Anxiety Mother Anxiety Maternal Aunt Congenital heart defect Maternal Grandfather Heart attack Family/Other Breast cancer Other FH: mental illness Social History Housing: House Alcohol intake: current Patient Tobacco Use Status: Never used Tobacco e-Cigarette/Vaping Use: Never Used Second Hand Smoke Exposure: No service: No Current occupational status: student Cognitive needs: No Hearing needs: Yes (Hearing loss left ear) Vision needs: No Questionnaire PHQ-9 Over the last 2 weeks, how often have you been bothered by any of the following problems? 1. Little interest or pleasure in doing things: not at all 2. Feeling down, depressed, or hopeless: not at all 3. Trouble falling or staying asleep, or sleeping too much: not at all 4. Feeling tired or having little energy: not at all 5. Poor appetite or overeating: not at all 6. Feeling bad about yourself - or that you are a failure or have let yourself or your family down: not at all 7. Trouble concentrating on things, such as reading the newspaper or watching television: not at all 8. Moving or speaking so slowly that other people could have noticed. Or the opposite - being so fidgety or restless that you have been moving around a lot more than usual: not at all 9. Thoughts that you would be better off or of hurting yourself in some way: not at all Total score: 0 Depression Screening Interpretation: Negative Depression Screening Done: Yes 90288 - PHQ-9 Billing: Yes Source: Developed by Drs. Danial Fitzpatrick, Candi Aldana, Sundeep Yepez and colleagues, with an educational batool from [employer]. Thrive Questionnaire Date Thrive assessed: 01/05/25 I am a: Patient What is your living situation today?: I have a steady place to live Within the past 12 months, did the food you bought not last and you didn't have the money to get more?: Never true Within the past 12 months, did you worry whether your food would run out before you got money to buy more?: Never true Do you have trouble paying for medicines?: No Do you have trouble getting transportation to medical appointments?: No Do you have trouble paying your heating and electricity bill?: No Do you have trouble taking care of your child, family member or friend?: No Do you have trouble with day-to-day activities such as bathing, preparing meals, shopping, managing finances, etc.?: No Are you currently unemployed and looking for a job?: No Are you interested in more education?: Yes Please select the resources that you would like help with: None Currently or been in a relationship where the following occur: No concerns reported THRIVE Score: 0 AUDIT C Alcohol Use Questionnaire (AUDIT-C) 1. How often do you have a drink containing alcohol?: Never 3. How often do you have six or more drinks on one occasion?: Never Total Score: 0 AIDEN-7 AMB Questionnaire AIDEN-7 Date AIDEN - 7 assessed: 01/12/25 Feeling nervous, anxious, or on edge: 0 = Not at all Not being able to stop or control worryin = Not at all Worrying too much about different things: 0 = Not at all Trouble relaxin = Not at all Being so restless that it is hard to sit still: 0 = Not at all Becoming easily annoyed or irritable: 0 = Not at all Feeling afraid as if something awful might happen: 0 = Not at all Total AIDEN-7 score (0-4 normal; 5-9 mild; 10-14 moderate; 15-21 severe): 0 Source: Developed by Drs. Danial Fitzpatrick, Candi Aldana, Sundeep Yepez and colleagues, with an educational batool from [employer]. AIDEN-7 Assessment Billing AIDEN-7 Assessment Tool: AIDEN-7 Assessment 19963 Physical exam (Primary Care) Vital Signs: Last Vital Signs Pulse 82 01/12/25 15:04 BP 128/70 01/12/25 15:04 Pulse Ox 97 01/12/25 15:04 Oxygen Delivery Method Room Air 01/12/25 15:04 BMI result Body Mass Index 28.8 Tobacco/Smoking Status: Tobacco use Status Tobacco use date assessed 01/12/25 01/12/25 15:01 Patient Tobacco Use Status Never used Tobacco 01/12/25 15:01 e-Cigarette/Vaping Use Never Used 01/12/25 15:01 PHQ-9: PHQ-9 Score PHQ-9: Total score 0 01/12/25 15:29 Depression Screening Interpretation: Negative Thrive Assessment: Date of Thrive Assessment Date Thrive assessed 01/05/25 01/12/25 15:01 Currently or been in a relationship where the following occur: No concerns reported Coding Level of Care Code Est Pt Level 3 (15751) Complex EM visit Add On G2211 Diagnoses Tinea versicolor B36.0 AIDEN (generalized anxiety disorder) F41.1 Additional Codes AIDEN-7 Assessment Billing - AIDEN-7 Assessment Tool: AIDEN-7 Assessment 71638 ([id number]) PHQ-9 - 59196 - PHQ-9 Billing: Yes ([id number]) Assessment & Plan Assessment & Plan (1) Tinea versicolor: Code(s): B36.0 - Pityriasis versicolor Category: Medical Plan: Reviewed cause of the rash. Wash with selsun blue shampoo on affected areas daily. Apply lotrmin bid to affected areas x 14 days. Wash clothing after use especially after perspiring/exercising. Call if symptoms don't resolve. (2) AIDEN (generalized anxiety disorder): Code(s): F41.1 - Generalized anxiety disorder Category: Medical Plan: She's doing very well. Current dosage is working. Continue therapy and Lexapro 5 mg daily. Plan She has a CPE in April. Medications: New clotrimazole 1% (Lotrimin AF (clotrimazole)) 1 appl topical BID 45 grams 1RF 2 weeks Refilled escitalopram oxalate 5 mg PO DAILY 90 tabs 3RF
[2025-01-12 15:04] VITALS: BP 128/70; PULSE 82; O2SAT 97; BMI 28.8
--- OUTSIDE RECORDS SUMMARY | 2025-01-12 17:07 | XMS_ITS | Encounter Summary ---
Author Organization [facility] Address [address] [place] [address] Phone Care Team Providers Care Metrology Specialist Name Role Phone Bailey Isaac NP Primary Care Provider [phone] Reason for Visit * Reason Comments Med Refill Encounter Details Date Type Department Care Team (Late st Contact Info) Description 02/24/2022 Refill [facility] [address] [place] [address] Bailey Isaac NP 7 [place] [address] Anxiety Social History Tobacco Use Types Packs/Day [...] 90 days supply request for Escitalopram Last [facility] 11/17/21 Med check 02/02/22 Last refill 02/02/22 Upcoming appt is 02/28/22 They highlighted #45 but that is a 90 days supply Please review documented in this encounter Plan of Treatment Not on file documented as of this encounter Visit Diagnoses Diagnosis Anxiety Anxiety state, unspecified documented in this encounter Care Teams Metrology Specialist Relationship Specialty Start Date End Date Bailey Isaac NP 7 [facility] [place] [address] PCP - General Pediatrics 08/26/21 11/19/24 documented as of this encounter
--- OUTSIDE RECORDS SUMMARY | 2025-01-12 17:07 | XMS_ITS | Clinical Summary ---
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 Doing electrolysis. Labs reassuring. Evaluated by pedi endocrinology. Prescribed [id number]-zlz-gtuthc lo and spironolactone. Assessment & Plan (03/20/2023 1:50 PM EDT): Considering coming off of spironolactone, will discuss with youth corrections officer. 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 [...] syndrome gene, also called the PDS or [id number] gene, in patients who have unilateral or [...] [place] and also had a consult with [facility] cardiology, per parents' preference - [...] Team Description 11/20/2024 [facility]phone [facility] [address] [address] Bailey Isaac NP Release of Records from Last 3 Months Immunizations Immunization Administration Dates Next Due COVID-19 Moderna, monovalent [...] 2023-2 5 season) 2024 11/12/2021, 03/19/2021, 02/25/2021 DTaP,Tdap,and Td Vaccines (7 - Td or [...] Additional history exists Procedures * Due to [place] law, this organization might not be sharing sensitive test results. Procedure Name Priority Date/Time Associated Diagnosis Comments CHLAMYDIA AND GONORRHEA, AMPLIFIED Routine 12/04/2019 4:30 PM EST Encounter for routine child health examination without abnormal findings from Last 3 Months or Most Recently Relevant to Health Maintenance Results * Due to [place] law, this organization might not be sharing sensitive test results. * Chlamydia and Gonorrhea, Amplified (12/04/2019 4:30 PM EST) Chlamydia Trachomatis, DNA Probe NEGATIVE (NEG) [facility] Comment: No Chlamydia Trachomatis RNA detected in this patient's sample ? (REFERENCE RANGE/NORMAL VALUE: NOT DETECTED) ? Note: This test uses health and safety instructor- mediated amplification method to detect rRNA from C. Trachomatis URINE GC AMP PROBE NEGATIVE (NEG) [facility] Comment: No Neisseria Gonorrhoeae RNA detected in this patient's sample ? (REFERENCE RANGE/NORMAL VALUE: NOT DETECTED) ? NOTE: This test uses health and safety instructor-mediated amplification method to detect rRNA from N.Gonorrhoeae. [...] without risk of sexual abuse. Consult the [facility] if needed. Contact phone number . Therapeutic failure or success cannot be determined with the Aptima Combo2 assay since nucleic acid may persist following appropriate antimicrobial therapy. The Centers for Disease Control and Prevention (CDC) recommends confirmatory retesting using culture or a different nucleic acid amplification test when positive results occur, if indicated. Testing performed or reported by [facility], a Service of [facility], [address] [place] [address] Pradip Winston MD, Senior Recruitment Consultant Urine 12/04/2019 4:30 PM EST 12/04/2019 10:06 PM EST Zo Hatfield MD LAB MICROBIOLOGY - GENERAL RASHIDA LAO Final Result [facility] from Last 3 Months or Most Recently Relevant to Health [place] [id number] [facility] [place] [address] [facility]
--- OUTSIDE RECORDS SUMMARY | 2025-01-12 17:07 | XMS_ITS | Encounter Summary ---
Author Organization [facility] Address [address] [place] [address] Phone Care Team Providers Care Livestock Producer Name Role Phone Bailey Isaac NP Primary Care Provider [phone] Encounter Details Date Type Department Care Team (Late st Contact Info) Description 12/28/2009 Documentation [facility] [place] [facility] [place] [address] Family Medicine, Physician [facility] [place], [place] [id number] Social History Tobacco Use Types Packs/Day Years [...] on filedocumented in this encounter Care Teams Livestock Producer Relationship Specialty Start Date End Date Bailey Isaac NP [address] [facility] [place] [address] PCP - General Pediatrics 08/26/21 11/19/24 documented as of this encounter
--- OUTSIDE RECORDS SUMMARY | 2025-01-12 17:07 | XMS_ITS | Encounter Summary ---
Author Organization [facility] Address [address] [place] [address] Phone Care Team Providers Care Java Application Developer Name Role Phone Bailey Isaac NP Primary Care Provider [phone] Encounter Details Date Type Department Care Team (Late st Contact Info) Description 03/24/2018 Conversion Encounter [facility] [address] [place] [address] Danial Brooks MD [address] [place] [address] Social History Tobacco Use Types Packs/Day Years [...] on filedocumented in this encounter Care Teams Java Application Developer Relationship Specialty Start Date End Date Bailey Isaac NP [address] [place] [address] PCP - General Pediatrics 10/22/21 1/15/25 documented as of this encounter
--- OUTSIDE RECORDS SUMMARY | 2025-01-12 17:07 | XMS_ITS | Clinical Summary ---
Author Organization [facility] Address [address] [place] [address] Care Team Providers Care Food Prep Worker Name Role Phone Unavailable Primary Care Provider [...]
--- OUTSIDE RECORDS SUMMARY | 2025-01-12 17:07 | XMS_ITS | Encounter Summary ---
Author Organization [facility] Address [address] [place] [address] Phone Care Team Providers Care Final Finisher Forging Dies Name Role Phone Bailey Isaac NP Primary Care Provider [phone] Reason for Visit * Reason Comments Med Refill Encounter Details Date Type Department Care Team (Late st Contact Info) Description 01/24/2023 Refill [facility] [address] [place] [address] Bailey Isaac NP [address] [place] [address] Anxiety Social History Tobacco Use Types Packs/Day [...] unspecified documented in this encounter Care Teams Final Finisher Forging Dies Relationship Specialty Start Date End Date Bailey Isaac NP [address] [place] [address] PCP - General Pediatrics 08/26/21 11/19/24 documented as of this encounter
--- OUTSIDE RECORDS SUMMARY | 2025-01-12 17:07 | XMS_ITS | Encounter Summary ---
Author Organization [facility] Address [address] [place] [address] Phone Care Team Providers Care Associate Technician Name Role Phone Bailey Isaac NP Primary Care Provider [phone] Encounter Details Date Type Department Care Team (Late st Contact Info) Description 11/29/2009 Documentation [facility] [place] [address] Family Medicine, Physician [facility] [place], [place] [id number] Social History Tobacco Use Types Packs/Day Years [...] on filedocumented in this encounter Care Teams Associate Technician Relationship Specialty Start Date End Date Bailey Isaac NP [address] [facility] [place] [address] PCP - General Pediatrics 08/26/21 11/19/24 documented as of this encounter
== END 2025-01-12 15:41 | disposition home or self-care (01) ==
PROVIDERS: PCP Physician Assistant Medical; Visit Provider Physician Assistant Medical
DX: B36.0 Pityriasis versicolor (principal); F41.1 Generalized anxiety disorder

== ENCOUNTER → 2025-01-12 14:55 | Outpatient (BNVA) | payer BC, SELFPAY | PROVIDERS: PCP Physician Assistant Medical; Visit Provider Physician Assistant Medical | DX: B36.0 Pityriasis versicolor (principal); F41.1 Generalized anxiety disorder; Z79.899 Other long term (current) drug therapy | CPT/HCPCS: 96127 ==

== ENCOUNTER 2025-04-06 16:20 | Outpatient (AMB) | payer BC, SELFPAY ==
--- NOTE | 2025-04-06 16:18 | A.OFFPC_ITS ---
Vital Signs 04/06/25 16:26 Height 5 ft 1.6 in Weight 148 lb 4 oz BMI 27.5 BP 118/68 Blood Pressure Location Rt brachial Position Sitting Pulse 86 Pulse Source Pulse Oximeter Temp 98.6 F Temp Source Temporal Artery Scan Pulse Oximetry (%) 98 Oxygen Delivery Method Room Air Intake Visit Reasons: annual physical exam Intake Note: Radha presents in the office today for her annual physical Allergies Penicillins Allergy (Unknown, Verified 04/06/25 16:24) Hives Medication List - Last Reconciled 04/06/25 by CARLOS MANUEL Tinajero clindamycin-benzoyl peroxide 1-5 % topical DAILY clotrimazole 1% (Lotrimin AF (clotrimazole)) 1 appl topical BID 2 weeks escitalopram oxalate 5 mg PO DAILY norgestimate-ethinyl estradiol 0.18/0.215/0.25 mg-0.025 mg (Udy-Qo-Kwlfqy) 1 tab PO DAILY tretinoin 0.05% 1 appl topical BEDTIME Tobacco use date assessed: 04/06/25 Dental Screening Dental Screen Date: 04/06/25 Did you have a dental visit in the last 12 months?: Yes Did you have a dental problem in the last 6 months where you did not have access to dental care?: No Was dental information given to patient?: Patient has dentist HPI HPI Comments History of Present Illness Details This is a 19-year-old female with a past medical history of iron-defi ciency, PCOS and generalized anxiety disorder presenting for a physical. Anxiety- She endorses chronic anxiety since a young age. She has seen a therapist intermittently since she was 3 years old. She is seeing a therapist currently. Prozac caused increased anxiety. She is now on lexapro 5 mg and is doing very well. No recent panic attacks. She is attending [employer]. 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 She saw a breast buffer this morning, but she forgot to mention a skin lesion on her left thigh that has been there for a few months. She does not think it has gotten bigger, but it has not gone away. It does not hurt or itch. She is going to contact her breast buffer to have them evaluate it. physician non invasive cardiologist-initial exam scheduled in June. PCOS-previously on spironolactone for acne. Followed by derm. She has lost weight. She moved home after the semester and she is exercising more regularly and eating healthier. ROS: Constitutional: No unexplained weight loss, fever, chills, fatigue or night sweats. Eyes: No vision changes, blurry vision, double vision, eye pain, eye redness, eye discharge. ENT: No hearing loss, sneezing, congestion, runny nose or sore throat. Respiratory: No shortness of breath, cough or sputum production. Cardiovascular: No chest pain, chest pressure or chest discomfort. No palpitations or pedal edema. Gastrointestinal: No anorexia, nausea, vomiting or diarrhea. No abdominal pain or blood in stool. Genitourinary: No dysuria, hematuria, urinary frequency. Neurologic: No headache, dizziness, syncope, unilateral weakness, ataxia, numbness or tingling in the extremities. Musculoskeletal: No muscle pain, back pain, joint pain or swelling. Hematologic/Lymphatics: No bleeding or bruising. No painful lymph nodes. Skin: No rash Endocrine: No cold or heat intolerance. No polyuria or polydipsia. Psychiatric: No depression.. No SI/HI. Physical exam: Constitutional: Alert, in no distress. Head: Normocephalic. Eyes: Pupils are equal, round and reactive to light. Extraocular muscles intact. Ear, Nose and Throat: Canals clear. TMs normal. Normal nasal mucosa. No nasal discharge. No oral lesions. Neck: Supple, Full range of motion. No lymphadenopathy. No palpable thyroid masses. Respiratory: Clear to auscultation. Cardiovascular: S1 S2 regular. No murmurs. Gastrointestinal: Abdomen soft, non-tender, non-distended. Normal bowel sounds. No palpable masses. Neurologic: No focal neurological deficits. Symmetric patellar reflexes. Moves all extremities spontaneously. Sensation intact bilaterally. Skin: 3 mm pink raised lesion on the left thigh Musculoskeletal: No gross deformities. Normal range of motion. Extremities: Warm and well perfused. No clubbing, cyanosis or edema. Intact peripheral pulses bilaterally. 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 AIDEN (generalized anxiety disorder) PCOS (polycystic ovarian syndrome) Low iron Surgical History H/O wisdom tooth extraction H/O knee surgery History of hymenectomy History of ankle surgery H/O wrist surgery Family History Maternal Grandmother Anxiety Mother Anxiety Maternal Aunt Congenital heart defect Maternal Grandfather Heart attack Family/Other Breast cancer Other FH: mental illness Social History (Updated 04/06/25 @ 16:25 by Daily Mejia MA) Housing: House Alcohol intake: current Patient Tobacco Use Status: Never used Tobacco e-Cigarette/Vaping Use: Never Used Second Hand Smoke Exposure: No service: No Current occupational status: student Current occupational exposures/hazards: No Cognitive needs: No Hearing needs: Yes (Hearing loss left ear) Vision needs: No Questionnaire PHQ-9 Over the last 2 weeks, how often have you been bothered by any of the following problems? 1. Little interest or pleasure in doing things: not at all 2. Feeling down, depressed, or hopeless: not at all 3. Trouble falling or staying asleep, or sleeping too much: not at all 4. Feeling tired or having little energy: not at all 5. Poor appetite or overeating: not at all 6. Feeling bad about yourself - or that you are a failure or have let yourself or your family down: not at all 7. Trouble concentrating on things, such as reading the newspaper or watching television: not at all 8. Moving or speaking so slowly that other people could have noticed. Or the opposite - being so fidgety or restless that you have been moving around a lot more than usual: not at all 9. Thoughts that you would be better off or of hurting yourself in some way: not at all Total score: 0 Depression Screening Interpretation: Negative Depression Screening Done: Yes 40722 - PHQ-9 Billing: Yes Source: Developed by Drs. Danial Fitzpatrick, Candi Aldana, Sundeep Yepez and colleagues, with an educational batool from [employer]. Thrive Questionnaire Date Thrive assessed: 04/06/25 I am a: Patient What is your living situation today?: I have a steady place to live Within the past 12 months, did the food you bought not last and you didn't have the money to get more?: Never true Within the past 12 months, did you worry whether your food would run out before you got money to buy more?: Never true Do you have trouble paying for medicines?: No Do you have trouble getting transportation to medical appointments?: No Do you have trouble paying your heating and electricity bill?: No Do you have trouble taking care of your child, family member or friend?: No Do you have trouble with day-to-day activities such as bathing, preparing meals, shopping, managing finances, etc.?: No Are you currently unemployed and looking for a job?: No Are you interested in more education?: Yes Please select the resources that you would like help with: None Currently or been in a relationship where the following occur: No concerns reported THRIVE Score: 0 AUDIT C Alcohol Use Questionnaire (AUDIT-C) 1. How often do you have a drink containing alcohol?: Monthly or less 2. How many drinks containing alcohol do you have on a typical day when you are drinking?: 1 or 2 3. How often do you have six or more drinks on one occasion?: Never Total Score: 1 Score Reviewed/Action Taken: No AIDEN-7 AMB Questionnaire AIDEN-7 Date AIDEN - 7 assessed: 04/06/25 Feeling nervous, anxious, or on edge: 0 = Not at all Not being able to stop or control worryin = Not at all Worrying too much about different things: 0 = Not at all Trouble relaxin = Not at all Being so restless that it is hard to sit still: 0 = Not at all Becoming easily annoyed or irritable: 0 = Not at all Feeling afraid as if something awful might happen: 0 = Not at all Total AIDEN-7 score (0-4 normal; 5-9 mild; 10-14 moderate; 15-21 severe): 0 Source: Developed by Drs. Danial Fitzpatrick, Candi Aldana, Sundeep Yepez and colleagues, with an educational batool from [employer]. AIDEN-7 Assessment Billing AIDEN-7 Assessment Tool: AIDEN-7 Assessment 81287 Physical exam (Primary Care) Vital Signs: Last Vital Signs Temp 98.6 F 04/06/25 16:26 Pulse 86 06/02/25 16:26 BP 118/68 04/06/25 16:26 Pulse Ox 98 04/06/25 16:26 Oxygen Delivery Method Room Air 04/06/25 16:26 BMI result Body Mass Index 27.5 Tobacco/Smoking Status: Tobacco use Status Tobacco use date assessed 04/06/25 04/06/25 16:29 Patient Tobacco Use Status Never used Tobacco 04/06/25 16:25 e-Cigarette/Vaping Use Never Used 04/06/25 16:25 PHQ-9: PHQ-9 Score PHQ-9: Total score 0 04/06/25 17:01 Depression Screening Interpretation: Negative Thrive Assessment: Date of Thrive Assessment Date Thrive assessed 04/06/25 04/06/25 16:29 Currently or been in a relationship where the following occur: No concerns reported Immunizations Boostrix Tdap 2.5 Lf unit-8 mcg-5 Lf/0.5 mL intramuscular syringe Performing Provider: CARLOS MANUEL Tinajero Performing Location: [facility] Administered by: FRANK Keller on 04/06/25 17:00 Dose Route Admin Location Dispensed Lot Number Expiration Date [employer] Officer 0.5 mL IM Left Deltoid 0.5 mL [id number] 06/30/27 [id number] Collect VIS Given Date VIS Provided VIS Publication Date 04/06/25 Single Vaccine 21 Eligibility Eligibility Date Funding Source Not [facility] Eligible 04/06/25 Private Coding Level of Care Code Est Pt Prev Care 18-39y(63710) Diagnoses PCOS (polycystic ovarian syndrome) E28.2 AIDEN (generalized anxiety disorder) F41.1 Screening for cardiovascular condition Z13.6 Routine physical examination Z00.00 Additional Codes AIDEN-7 Assessment Billing - AIDEN-7 Assessment Tool: AIDEN-7 Assessment 41817 ([id number]) PHQ-9 - 18223 - PHQ-9 Billing: Yes ([id number]) Assessment & Plan Assessment & Plan (1) PCOS (polycystic ovarian syndrome): Code(s): E28.2 - Polycystic ovarian syndrome Category: Medical Plan: Continue regular exercise and following a healthy, low carbohydrate, low sugar diet. Check fasting glucose and A1c. Check TSH. (2) AIDEN (generalized anxiety disorder): Code(s): F41.1 - Generalized anxiety disorder Category: Medical Plan: Stable. Continue to see a therapist and continue Lexapro 5 mg daily. (3) Screening for cardiovascular condition: Code(s): Z13.6 - Encounter for screening for cardiovascular disorders Category: Medical (4) Routine physical examination: Code(s): Z00.00 - Encounter for general adult medical examination without abnormal findings Category: Medical Plan: Patient is seen today for a routine physical. As part of this visit we reviewed the following issues, which are considered and essential part of preventative health in this age group: - Breast Cancer screening - Annual Economic Development Specialist exam - Blood pressure screening - Cholesterol screening - Osteoporosis prevention including calcium/vitamin D intake, weight bearing exercise & smoking cessation - Nutritional and exercise counseling - Counseling of injury prevention including fire prevention, smoke alarms and seat belt usage - Screening for depression - Prevention of and/or testing for infectious diseases - declined, patient is not sexually active - Education about skin cancer - Recommendations about immunizations - Recommendation of an eye exam - Screening for substance abuse Plan Follow up in 6 months for a medication review. Orders: Orders Lipid Panel Today E28.2 - Polycystic ovarian syndrome, E61.1 - Iron deficiency, F41.1 - Generalized anxiety disorder, Z13.6 - Encounter for screening for cardiovascular disorders TSH reflex Free T4 Today E28.2 - Polycystic ovarian syndrome, E61.1 - Iron deficiency, F41.1 - Generalized anxiety disorder, Z13.6 - Encounter for screening for cardiovascular disorders Complete Blood Count no Diff Today E28.2 - Polycystic ovarian syndrome, E61.1 - Iron deficiency, F41.1 - Generalized anxiety disorder, Z13.6 - Encounter for screening for cardiovascular disorders Comprehensive Met. Panel Today E28.2 - Polycystic ovarian syndrome, E61.1 - Iron deficiency, F41.1 - Generalized anxiety disorder, Z13.6 - Encounter for screening for cardiovascular disorders IRON PROFILE Today D64.9 - Anemia, unspecified, E28.2 - Polycystic ovarian syndrome, E61.1 - Iron deficiency, F41.1 - Generalized anxiety disorder, Z13.6 - Encounter for screening for cardiovascular disorders Ferritin Today D64.9 - Anemia, unspecified, E28.2 - Polycystic ovarian syndrome, E61.1 - Iron deficiency, F41.1 - Generalized anxiety disorder, Z13.6 - Encounter for screening for cardiovascular disorders TDaP Immunization Today Z23 - Encounter for immunization Hemoglobin A1c Today E28.2 - Polycystic ovarian syndrome
[2025-04-06 16:26] VITALS: BP 118/68; PULSE 86; TEMP 37; O2SAT 98; BMI 27.5
== END 2025-04-06 16:58 | disposition home or self-care (01) ==
LOC: HO.HMCFM 16:21
PROVIDERS: PCP Physician Assistant Medical; Visit Provider Physician Assistant Medical
DX: E28.2 Polycystic ovarian syndrome (principal); F41.1 Generalized anxiety disorder; Z13.6 Encounter for screening for cardiovascular disorders; Z00.00 Encounter for general adult medical examination without abnormal findings; Z23 Encounter for immunization

== ENCOUNTER → 2025-04-06 16:20 | Outpatient (BNVA) | payer BC, SELFPAY | PROVIDERS: PCP Physician Assistant Medical; Visit Provider Physician Assistant Medical | DX: Z00.00 Encounter for general adult medical examination without abnormal findings (principal); L98.9 Disorder of the skin and subcutaneous tissue, unspecified; E28.2 Polycystic ovarian syndrome; F41.1 Generalized anxiety disorder; Z13.6 Encounter for screening for cardiovascular disorders; Z23 Encounter for immunization; Z13.30 Encounter for screening examination for mental health and behavioral disorders, unspecified | CPT/HCPCS: 90471; 90715; 96127 ==

== ENCOUNTER 2025-06-01 08:06 | Outpatient (REF) | payer BC, SELFPAY ==
--- OUTSIDE RECORDS SUMMARY | 2025-06-01 08:11 | XMS_ITS | Clinical Summary ---
Author Organization [facility]ly [facility] Address [address] [place] [address] Care Team Providers Care Machine Operations Supervisor Name Role Phone Unavailable Primary Care Provider Unavailabl e Immunizations Immunization Administration Dates Next Due Influenza Inactivated/Split Preservative Free IM 08/17/2022 Influenza, Quadrivalent (FLU CELVAX) MDCK, Preservative Free IM 07/31/2023 Social History Tobacco Use Types Packs/Day Years Used Date Smoking Tobacco: Never Assessed Comments Unknown Sex and Gender Information Value Date Recorded Sex Assigned at Female 07/31/2023 11:52 AM EDT Legal Sex Female 9:51 AM EDT Gender Identity Female 07/31/2023 11:52 AM EDT Sexual Orientation Heterosexual (straight) 07/31 11:52 AM EDT Plan of Treatment Health Maintenance Due Date Last Done Comments Hepatitis C Virus Screening 2003 HIV Screening 2016 HPV Vaccines (1 - 3-dose series) 2018 DTaP/Tdap/Td Vaccines (1 - Tdap) 2022 Hepatitis B Vaccines (1 of 3 - 19+ 3-dose series) 2022 COVID-19 Vaccine (1 - 2023-25 season) 2024 Pap Smear (Ages 21-65) 2024 Influenza Vaccine 06/05/2025 07/31/2023, , 08/04/2021, Additional history exists Pneumococcal Vaccine: Pediatric (0-5 Years) and At-Risk Patients (6 to 49 Years) Aged Out No longer eligible based on patient's age to complete [place] [id number] [facility]
--- OUTSIDE RECORDS SUMMARY | 2025-06-01 08:11 | XMS_ITS ---
Author Name [facility] Organization Unknown Immunizations Vaccine Date Source Lot Number Status Influenza, Quadrivalent (FLU CELVAX) MDCK, Preservative Free IM 07/31/2023 [facility] [id number] completed Influenza Inactivated/Split Preservative Free IM 08/17/2022 [facility] [id number] completed Encounters Encounter Type Encounter Reason Primary Diagnosis Location Date Ambulatory [facility] [employer] [facility] 08/17/2022 Care Team Organization Name Specialty Phone Email Start Date End [facility] - Marko Atkins MD & Umberto Stack MD 08/14/2024 01/02/2025 [facility] 08/17/2022 08/17/2022 [facility] 08/17/2022
--- OUTSIDE RECORDS SUMMARY | 2025-06-01 08:11 | XMS_ITS | Encounter Summary ---
Author Organization [facility] Address [address] [place] [address] Phone Care Team Providers Care Delinquent Account Clerk Name Role Phone Bailey Isaac NP Primary Care Provider Zo Hatfield Unavailable Bailey Isaac NP Unavailable [phone] Danial Contreras MD Unavailable [phone] Encounter Details Date Type Department Care Team (Late st Contact Info) Description 04/14/2024 Abstract Health Information Management [address] [place] [id number] Provider, Unable To Verify [address] [place] [address] Social History Tobacco Use Types Packs/Day Years Used Date Smoking Tobacco: Never Assessed Comments Unknown Sex and Gender Information Value Date Recorded Sex Assigned at Female 03/20/2025 11:14 AM EDT Legal Sex Female 11:19 PM EDT Gender Identity Female 03/20/2025 11:14 AM EDT Sexual Orientation Straight 03/20/2025 11 :14 AM EDT documented as of this encounter Plan of Treatment Not on file documented as of this encounter Visit Diagnoses Not on filedocumented in this encounter Care Teams Delinquent Account Clerk Relationship Specialty Start Date End Date Bailey Isaac NP [address] [place] [id number] PCP - General 03/14/24 Zo Hatfield [address] [place] [address] PCP - Insurance PCP 12/31/15 Bailey Isaac NP [address] [place] [address] PCP - Clinical PCP 03/21/22 Danial Contreras MD [address] [place] [id number] HC Claim Adjuster 04/05/24 documented as of this encounter
--- OUTSIDE RECORDS SUMMARY | 2025-06-01 08:11 | XMS_ITS | Encounter Summary ---
Author Organization [facility] Address [address] [place] [address] Phone Care Team Providers Care Social Worker Delinquency Prevention Name Role Phone Bailey Isaac NP Primary Care Provider [phone] Encounter Details Date Type Department Care Team (Late st Contact Info) Description 11/29/2009 Documentation [facility] [place] Family Medicine [facility] [place] [address] Family Medicine, Physician [facility] [place], [place] [address] Social History Tobacco Use Types Packs/Day Years [...] on filedocumented in this encounter Care Teams Social Worker Delinquency Prevention Relationship Specialty Start Date End Date Bailey Isaac NP [address] [facility] [place] [address] PCP - General Pediatrics 08/26/21 11/19/24 documented as of this encounter
--- OUTSIDE RECORDS SUMMARY | 2025-06-01 08:11 | XMS_ITS | Clinical Summary ---
Author Organization [facility] Address [address] [facility] [address] [place] [address] Phone Care Team Providers Care Soda Dispenser Name Role Phone Zo Hatfield MD Primary Care Provider [phone] Allergies Active Allergy Reactions Criticality Noted Date Comments Penicillins 07/05/2018 Medications tretinoin (RETIN-A) 0.025 % cream Apply topically nightly at bedtime. Active spironolactone (ALDACTONE) 25 MG tablet Take 25 mg by mouth daily. Active clindamycin-manuelito zoyl peroxide ER (DUAC) gel APPLY TO FACE EVERY EVENING 9 Active norgestimate-et hinyl estradiol (VWF-HK-MKFROJ) 0.18/0.215/0.25 mg-25 mcg Tab 9 Active bacillus coagulans-inuli n 1 billion-250 cell-mg Cap Take 250 mg by mouth daily. Active Active Problems Problem Noted Date Diagnosed Date Palpitations in pediatric patient 09/02/2019 Overview (09/02/2019): Tachycardia/palpitations (05/21); EKG and to cardiology - seen by Dr. Smallwood and also had a consult with [facility] cardiology, per parents' preference - holter monitor ordered, suspect SVT. Episodes of tachycardia on holter monitor showed NSR. Per mom, will repeat the monitor,and anticipate not needing cardiology f/u. 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 Limited exam due to pain. Longitudinal vaginal septum not ruled out. Pelvic floor dysfunction and vaginismus likely contributing to pain. Will have an US to further eval, likely will need surgical intervention, and pelvic floor PT/desensitization. Conductive hearing loss 11/28/2016 Iron deficiency anemia 11/28/2016 Acne vulgaris 09/27/2016 Immunizations Immunization Administration Dates Next Due DTaP 11/23/2008, 5,05/03/2004,02/28,01/01/2004 [id number] FORMULATION 10/04/2009,08/06 HPV,quadrivalent 01/29/2015,11/27/2014 HPV9 06/01/2015 Hepatitis A, ped/adol, 2 dose 12/25/2017 Hepatitis B 08/01/2004,2003,2003 Hib,PRP-T 02/06/2005, 4,02/29/2004,01/21 IPV 11/23/2008, 4,03/25/2004,01/01 Influenza Quadrivalent Prese rvative Free IM 07/31/2015,08/08/2014,08/12/2013,10/21 Influenza Quadrivalent w/ Pr eservative IM 08/20/2017,08/22/2016,08/19/2012,08/05,07/23/2010,09/05/2008 Influenza Trivalent Preserva tive Free IM 08/09/2006,08/22/2005,09/20/2004,08/16 Influenza, Unspecified Formulation 08/27/2007 MMR 11/18/2007,11/08/2004 Meningococcal MCV4P 11/27/2014 Pneumococcal conjugate, PCV 7 03/13/2005 ,08/16/2004,03/25/2004,01/21 Tdap 11/27/2014 Varicella 11/18/2007,11/08/2004 Family History Medical History Relation Comments No Known Problems Father Anxiety disorder Mother Relation Status Comments Father Alive Mother Alive Social History Tobacco Use Types Packs/Day Years Used Date Smoking Tobacco: Never Smokeless Tobacco: Never Alcohol Use Standard Drinks/Week Comments No 0 (1 standard drink = 0.6 oz pur e alcohol) Education Answer Date Recorded Are you interested in more education? Not on paulette e 03/02/2023 Are you concerned about learning? Not on file 03/02/2023 No 03/02/2023 No 03/02/2023 Digital Access Answer Date Recorded No 04/02/2023 No 04/02/2023 No 04/02/2023 Reliable internet access at home? Not on file 04/02/2023 Device with a working camera? Not on file Comments No Sex and Gender Information Value Date Recorded Sex Assigned at Not on file Legal Sex Female 4:46 PM EDT Gender Identity Not on file Sexual Orientation Not on file Last Filed Vital Signs Vital Sign Reading Time Taken Comments Blood Pressure 90/66 01/08/2020 3:21 PM EST Pulse 88 01/08/2020 3:21 PM EST Temperature 36.4 C (97.5 F) 01/08/2020 3:21 PM EST Respiratory Rate 98 01/08/2020 3:21 PM EST Oxygen Saturation 99% 10/09/2019 4:36 PM EST Inhaled Oxygen Concentration - - Weight 57.2 kg (126 lb) 09/22/2019 4:50 PM EST Height 152.4 cm (5') 09/22/2019 4:50 PM EST Body Mass Index 24.61 09/22/2019 4:50 PM EST Plan of Treatment Health Maintenance Due Date Last Done Comments POTASSIUM LEVEL 2003 DEPRESSION SCREENING 2015 SMOKING Hx and SMOKELESS TOBACCO SCREENING 2016 CHLAMYDIA SCREENING 2019 MENINGOCOCCAL VACCINES (B) (1 of 2 - Standard) 2019 ADOLESCENT UNIVERSAL LIPID SCREENING 2020 HEPATITIS C SCREENING 2021 HIV ONE-TIME SCREENING (18-65 YEARS) 2021 COVID-19 VACCINE (2 - 2023- season) 2024 02/25/2021 PAP SMEAR 2024 Adult Td,Tdap Booster 11/27/2024 11/27/2014 COMBINED DTaP,Tdap,Td (7 - Td or Tdap) 11/27/2024 11/27/2014, 11/23/2008, 02/06/2005, Additional history exists HIB VACCINES Completed 02/06/2005, 04/06, 02/29/2004, Additional history exists PNEUMOCOCCAL VACCINES (0-49 years) Aged Out 03/13/2005, 08/16/2004, 03/25/2004, Additional history exists No longer eligible based on patient's age to complete this topic MMR VACCINES Completed 11/18/2007, 11/08/2004 HPV VACCINES Completed 06/01/2015, 01/04, 11/27/2014 HEPATITIS A VACCINES Completed 12/03/2018, 12/25/19 18 MENINGOCOCCAL VACCINES (ACWY) Completed 12/04/2019, 11/27/2014 Medical Devices [place] [id number] [place] [employer] [facility] [place] [id number] [facility] [employer] [facility] [employer] [facility] [employer] [facility] [employer] [facility] [employer] [facility] Care Teams Soda Dispenser Relationship Specialty Start Date End Date Zo Hatfield MD PCP - General Pediatrics 06/24/18 Additional Source Comments The information contained in this document represents components of the legal health record. It is not the complete legal health record.[facility]
[2025-06-01 11:44] LABS: Hematocrit 36.4 % (37.0-47.0); Hemoglobin 11.7 g/dl (12.0-16.0); Mean Corpuscular HGB Conc 32.1 g/dl (31.0-35.0); Mean Corpuscular Hemoglobin 28.6 pg (27.0-33.0); Mean Corpuscular Volume 89.0 fL (80.0-98.0); NRBC Abs Auto 0.000 X10*3/uL (0.0-0.012); NRBC Pct Auto 0.0 /100WBC (0.0-0.2); Platelet Count 272 X10*3/uL (160-400); Red Blood Count 4.09 X10*6/uL (4.20-5.50); White Blood Count 6.8 X10*3/uL (4.8-10.8)
[2025-06-01 12:02] LABS: Hemoglobin A1C 93.8262 umol/L; Total Hemoglobin (HGBA1C) 3042.7625 umol/L
[2025-06-01 12:05] LABS: Alanine Aminotransferase 16 U/L (0-31); Albumin Level 4.2 g/dL (3.5-5.0); Alkaline Phosphatase 48 U/L (39-117); Anion Gap 11 (12-20); Aspartate Amino Transferase 24 U/L (5-31); Blood Urea Nitrogen 10 mg/dL (9-16); Calcium 8.8 mg/dL (8.4-10.2); Carbon Dioxide 26 mmol/L (22-29); Chloride 107 mmol/L (96-108); Cholesterol 164 mg/dL (<200); Estimated Glomerular Filt Rate > 60; HDL Cholesterol 57 mg/dL (>40); Iron 169 mcg/dL (30-160); Percent Iron Saturation 52 % (15-50); Potassium 4.2 mmol/L (3.3-5.1); Sodium 140 mmol/L (135-145); Total Iron Binding Capacity 325 mcg/dL (228-428); Total Protein 6.5 g/dL (6.5-8.0); Triglycerides 88 mg/dL (<150); Unsaturated Iron Binding 156 ug/dL
[2025-06-01 12:38] LABS: Ferritin 19 ng/mL (10-122)
== END 2025-06-01 08:07 | disposition home or self-care (01) ==
LOC: HO.WFDLDS 08:06
PROVIDERS: Visit Provider Physician Assistant Medical
DX: E28.2 Polycystic ovarian syndrome (principal); F41.1 Generalized anxiety disorder; D50.9 Iron deficiency anemia, unspecified; Z13.6 Encounter for screening for cardiovascular disorders
CPT/HCPCS: 36415; 80053; 80061; 82728; 83036; 83540; 84443; 85027

== ENCOUNTER 2025-08-21 08:53 | Outpatient (REF) | payer BC, SELFPAY ==
--- OUTSIDE RECORDS SUMMARY | 2025-08-21 09:28 | XMS_ITS | Clinical Summary ---
Author Organization [facility] Address [address] [place] [address] Care Team Providers Care Bi Application Developer Name Role Phone Unavailable Primary Care Provider [...] of 3 - 19+ 3-dose series) 2022 Pap Smear (Ages 21-65) 2024 Influenza Vaccine 06/05/2025 07/31/2023, , 08/04/2021, Additional history exists COVID-19 Vaccine ( - 2023- season) 2025 Pneumococcal Vaccine: Pediatric (0-5 Years) and At-Risk Patients (6 to 49 Years) Aged Out No longer eligible based on patient's age to complete [place] [id number] RUST
--- OUTSIDE RECORDS SUMMARY | 2025-08-21 09:28 | XMS_ITS | Encounter Summary ---
Author Organization [facility] Address [address] [place] [address] Phone Care Team Providers Care Stone Rougher Name Role Phone Bailey Isaac NP Primary Care Provider [phone] Encounter Details Date Type Department Care Team (Late st Contact Info) Description 12/28/2009 Documentation [facility] [place] [address] Family Medicine, Physician [facility] [place] [address] Social History Tobacco Use Types Packs/Day Years [...] on filedocumented in this encounter Care Teams Stone Rougher Relationship Specialty Start Date End Date Bailey Isaac NP [address] [facility] [place] [address] PCP - General Pediatrics 08/26/21 11/19/24 documented as of this encounter
--- OUTSIDE RECORDS SUMMARY | 2025-08-21 09:28 | XMS_ITS | Encounter Summary ---
Author Organization [facility] Address [address] [place] [address] Phone Care Team Providers Care Assembler Deck And Hull Name Role Phone Bailey Isaac NP Primary Care Provider [phone] Reason for Visit * Reason Comments Med Refill Encounter Details Date Type Department Care Team (Late st Contact Info) Description 01/24/2023 Refill [facility] [address] [place] [address] Bailey Isaac NP [address] [place] [address] Anxiety Social History Tobacco Use Types Packs/Day [...] unspecified documented in this encounter Care Teams Assembler Deck And Hull Relationship Specialty Start Date End Date Bailey Isaac NP [address] [place] [address] PCP - General Pediatrics 08/26/21 11/19/24 documented as of this encounter
--- OUTSIDE RECORDS SUMMARY | 2025-08-21 09:28 | XMS_ITS | Encounter Summary ---
Author Organization [facility] Address [address] [place] [address] Phone Care Team Providers Care Slasher Sawyer Name Role Phone Bailey Isaac NP Primary Care Provider [phone] Reason for Visit * Reason Comments Med Refill Encounter Details Date Type Department Care Team (Late st Contact Info) Description 02/24/2022 Refill [facility] [address] [place] [address] Bailey Isaac NP [address] [place] [address] Anxiety Social History Tobacco Use Types Packs/Day [...] 90 days supply request for Escitalopram Last [facility] 11/17/21 Med check 02/02/22 Last refill 02/02/22 Upcoming appt is 02/28/22 They highlighted #45 but that is a 90 days supply Please review documented in this encounter Plan of Treatment Not on file documented as of this encounter Visit Diagnoses Diagnosis Anxiety Anxiety state, unspecified documented in this encounter Care Teams Slasher Sawyer Relationship Specialty Start Date End Date Bailey Isaac NP 7 [facility] [place] [address] PCP - General Pediatrics 08/26/21 11/19/24 documented as of this encounter
--- OUTSIDE RECORDS SUMMARY | 2025-08-21 09:28 | XMS_ITS | Encounter Summary ---
Author Organization [facility] Address [address] [place] [address] Phone Care Team Providers Care Marketing Associate Name Role Phone Bailey Isaac NP Primary Care Provider Zo Hatfield Unavailable Bailey Isaac NP Unavailable [phone] Danial Contreras MD Unavailable [phone] Encounter Details Date Type Department Care Team (Late st Contact Info) Description 04/14/2024 Abstract Health Information Management [address] [place] [phone] Provider, Unable To Verify [address] [place] [address] Social History Tobacco Use Types Packs/Day Years [...] on filedocumented in this encounter Care Teams Marketing Associate Relationship Specialty Start Date End Date Bailey Isaac NP [address] [place] [address] PCP - General 03/14/24 Zo Hatfield [address] [place] [address] PCP - Insurance PCP 12/31/15 Bailey Isaac NP [address] [place] [address] PCP - Clinical PCP 03/21/22 Danial Contreras MD [address] [place] [address] HC Bodywork Therapist 04/05/24 documented as of this encounter
--- OUTSIDE RECORDS SUMMARY | 2025-08-21 09:28 | XMS_ITS | Patient Health Record ---
Author Organization [facility] Address [address] [facility] [address] [place] [address] Care Team Providers Care Anchorer Name Role Phone REYNALDO MOON PA-C Primary Care Provider Gerda Jackson [phone] Allergies Allergen (clinical drug ingredient) Drug/Non Drug Allergy documented on EMR Reaction Allergy Type Onset Date Status Penicillin Hives Drug Allergy Active Results Component Value Reference Range Notes PDF Report Reviewed date:07/01/2025 10:33:53 AM Interpretation: Performing Lab:[facility] [place], [address], [address], [place], Phone - [phone], Director - [facility] Notes/Report: Clinical Information:Vaginal/Cervical, LMP: 06/08 [id number] LMP / Prev Treat...[id number] Dates / Results....First Pap Today Other..............Oral Contraceptives No. of containers..01 ThinPrep Vial [id number] IGP rfx No Cultur e Under 30 Reviewed date:07/15/2025 01:19:42 PM Interpretation: Performing Lab:[facility] [place], [address], [address], [place], Phone - [phone], Director - [facility] Notes/Report: Clinical Information:Vaginal/Cervical, LMP: 06/08 [id number] LMP / Prev Treat...[id number] Dates / Results....First Pap Today Other..............Oral Contraceptives No. of containers..01 ThinPrep Vial DIAGNOSIS: UNSATISFACTORY FOR EVALUATION. THIS SPECIMEN WAS RESCREENED PART OF OUR [employer] SIGN LANGUAGE TEACHER PROGRAM. Specimen adequacy: Specimen processed and examined, but unsatisfactory for evaluation of epithelial abnormality because of excessive lubricant. Areas of partially obscuring inflammatory exudate are present. Clinician provided ICD10: Z0 1.419 Performed by: Calista De La Rosa ytologist ([facility]) QC reviewed by: Toribio dubois, Senior Cyber Intelligence Analyst ([facility]) . . Note: The Pap smear is a screening test designed to aid in the detection of premalignant and malignant conditions of the uterine cervix. It is not a diagnostic procedure and should not be used as the sole means of detecting cervical cancer. Both false-positive and false-negative reports do occur. . Test Methodology: [place] The Networker Prep(R) Combatant Diver Qualified was unable to read this specimen. Therefore a manual review was performed. . The HPV DNA reflex criteria were not met with this specimen result therefore, no HPV testing was performed. . Urinalysis Reviewed date:06/29/2025 03:08:16 PM Interpretation: Performing Lab: Notes/Report: PH 8.0 PROTEIN Trace GLUCOSE Neg BLOOD Neg [id number] IGP, CtNg, Cultur e Under 30 Reviewed date:07/21/2025 03:43:11 PM Interpretation: Performing Lab:[facility] [place], [address] [place], [place] [address], [address], [place], Phone - [phone], Director - [facility] Notes/Report: Clinical Information:Vaginal/Cervical, LMP: 07/06 [id number] LMP / Prev Treat...[id number] Dates / Results....06/29/25 No Interp Poss Other..............Oral Contraceptives No. of containers..01 ThinPrep Vial DIAGNOSIS: NEGATIVE FOR IN TRAEPITHELIAL LESION OR MALIGNANCY. Specimen adequacy: Satisfactory for evaluation. Endocervical and/or squamous metaplastic cells (endocervical component) are present. Clinician provided ICD10: R87.615 Z72.51 Z11.3 Performed by: Glenna marcus, Senior Cyber Intelligence Analyst ([facility]) . . Note: The Pap smear is a screening test designed to aid in the detection of premalignant and malignant conditions of the uterine cervix. It is not a diagnostic procedure and should not be used as the sole means of detecting cervical cancer. Both false-positive and false-negative reports do occur. . Test Methodology: This liquid based ThinPrep(R) pap test was screened with the use of an image guided system. . The HPV DNA reflex criteria were not met with this specimen result therefore, no HPV testing was performed. . Chlamydia, Nuc. Acid Amp Negative Negative Gonococcus, Nuc. Acid Amp Negative Negative PDF Report Reviewed date:07/21/2025 03:25:07 PM Interpretation: Performing Lab:[facility] [place], [address], [address], [place], Phone - [phone], Director - [facility] Notes/Report: Clinical Information:Vaginal/Cervical, LMP: 07/06 [id number] LMP / Prev Treat...[id number] Dates / Results....06/29/25 No Interp Poss Other..............Oral Contraceptives No. of containers..01 ThinPrep Vial Reason For Referral No Information Medications Medication SIG (Take, Route, Frequency, Duration) Notes Start Date End Date Status Clindamycin Phos-Benzoyl Perox 1-5 % External; Duration: 50 Days Active Hbc-Xg-Vvcpii 0.18/0.215/0.25 MG-25 MCG 1 tablet Orally Once a day; Duration: 90 days 06/29/2025 Active Escitalopram Oxalate 5 MG TAKE 1 TABLET BY MOUTH EVERY DAY Oral; Duration: 90 Days Active Tretinoin 0.05 % 1 application in the evening to face Externally Once a day Active Social History Tobacco Use: Social History Observation Description Date Details (start date - stop date) Never Smoker NA - NA Sexual History Question Answer Notes Had sex in the past 12 months (vaginal, oral, or anal)? No Have you ever had a Sexually transmitted disease ? No AUDIT-C (Standard) Question Answer Notes Did you have a drink contain ing alcohol in the past year? Yes How often did you have a dri nk containing alcohol in the past year? Monthly or less (1 point) How many drinks did you have on a typical day when you were drinking in the past year? 1 or 2 drinks (0 point) How often did you have six o r more drinks on one occasion in the past year? Never (0 point) Points 1 Interpretation Negative Tobacco Control (Standard) Question Answer Notes Tobacco use: Nonsmoker Problems Problem Type SNOMED Code ICD Code Onset Dates Problem Status W/U Status Risk Notes Problem Anxiety disorder (284415076) Anxiety disorder, unspecified (F41.9) Active confirmed Vital Signs Temperature 98.1 degrees Fahrenheit 07/17/2025 Blood pressure diastolic 76 mm Hg 07/17/2025 Height 62 in 07/17/2025 Blood pressure systolic 108 mm Hg 07/17/2025 Weight 152 lbs 07/17/2025 BMI 27.8 kg/m2 07/17/2025 Encounters Encounter Location Date Provider Diagnosis [facility] [address] [place] [address] 06/29/2025 Gerda Donohue Encounter for gynecological examination (general) (routine) without abnormal findings Z01.419 ; Encounter for surveillance of contraceptives, unspecified Z30.40 ; Other specified counseling Z71.89 and Hirsutism L68.0 [facility] [address] [address] 07/17/2025 Gerda Donohue Unsatisfactory cytologic smear of cervix R87.615 Assessments Encounter Date Diagnosis (ICD Code) Assessment Notes Treatment Notes Treatment Clinical Notes Section Notes 06/29/2025 Encounter for gynecological examination (general) (routine) without abnormal findings (ICD-10 - Z01.419) PAP TEST WAS PERFORMED. 07/17/2025 Unsatisfactory cytologic smear of cervix (ICD-10 - R87.615) DISCUSSED PREVIOUS PAP TEST AND WHY IT WAS UNINTERPRETABL E. REPEAT PAP TEST WAS OBTAINED WITHOUT DIFFICULTY. NO LUBRICANT WAS USED JUST NO LUBRICANT WAS USED ON HER FIRST PAP TEST. 06/29/2025 Encounter for surveillance of contraceptives, unspecified (ICD-10 - Z30.40) CONITNUE OCP'S. 06/29/2025 Other specified counseling (ICD-10 - Z71.89) SAFE SEX AND CAREFUL PARTNER SELECTION WERE DISCUSSED. 06/29/2025 Hirsutism (ICD-10 - L68.0) DISCUSSED IDIOPATHIC HIRSUTISM AND WHAT THIS DX IMPLIES. CONTINUE OCP'S THIS HAS DECREASED HAIR GROWTH. Plan Of Treatment Pending Test Test Name Order Date [id number] IGP rfx No Culture Under 30 0 07/17/2025 Insurance Providers Payer Name Payer Address Payer Phone Subscriber Number Group Number Insured Name Patient Relationship to Insured Coverage Start Date Coverage End Date [employer] [place] [address] [place] [address] [phone] [id number] FIDEL OCHOA Child - Insured has Financial Responsibility Medical (General) History Medical History History ICD Code Hirsutism L68.0 Anxiety disorder, unspecified F41.9 Unsatisfactory cytologic smear of cervix R87.615 Surgical History Surgery Date(Month/Year) Hymenectomy 04/2019 Ankle Surgery 09/2020 Knee Surgery 11/2020 Wrist Surgery 11/2022 Hospitalization History Reason Date(Month/Year) See Surgical Hx
--- OUTSIDE RECORDS SUMMARY | 2025-08-21 09:28 | XMS_ITS | Clinical Summary ---
Author Organization [facility] Address [address] [facility] [address] [place] [address] Phone Care Team Providers Care Fibre Cement Moulder Name Role Phone Zo Hatfield MD Primary Care Provider [phone] Allergies Active Allergy Reactions Criticality Noted Date Comments Penicillins 07/05/2018 Medications tretinoin (RETIN-A) 0.025 % cream Apply topically nightly at bedtime. Active spironolactone (ALDACTONE) 25 MG tablet Take 25 mg by mouth daily. Active clindamycin-manuelito zoyl peroxide ER (DUAC) gel APPLY TO FACE EVERY EVENING 9 Active norgestimate-et hinyl estradiol (KLS-MY-HPPJYU) 0.18/0.215/0.25 mg-25 mcg Tab 9 Active bacillus coagulans-inuli n 1 billion-250 cell-mg Cap Take 250 mg by mouth daily. Active Active Problems Problem Noted Date Diagnosed Date Palpitations in pediatric patient 09/02/2019 Overview (09/02/2019): Tachycardia/palpitations (05/21); EKG and to cardiology - seen by Dr. Smallwood and also had a consult with [facility] cardiology, per parents' preference - holter [...] Administration Dates Next Due DTaP 11/23/2008, 5,05/03/2004,02/28,01/01/2004 [id number] FORMULATION 10/04/2009,08/06 HPV,quadrivalent 01/29/2015,11/27/2014 HPV9 06/01/2015 Hepatitis A, ped/adol, 2 dose 12/25/2017 Hepatitis B 08/01/2004,2003,2003 Hib,PRP-T 02/06/2005, 4,02/29/2004,01/21 INFLUENZA, SPLIT VIRUS, TRIVALENT PF 03/2006,08/22/2005,09/20/2004,08/16 IPV 11/23/2008, 4,03/25/2004,01/01 Influenza Quadrivalent Prese rvative Free IM 07/31/2015,08/08/2014,08/12/2013,10/21 Influenza Quadrivalent w/ Pr eservative IM 08/20/2017,08/22/2016,08/19/2012,08/05,07/23/2010,09/05/2008 Influenza, Unspecified Formulation 08/27/2007 MMR 11/18/2007,11/08/2004 Meningococcal [...] 2021 HIV ONE-TIME SCREENING (18-65 YEARS) 2021 PAP SMEAR 2024 Adult Td,Tdap Booster 11/27/2024 11/27/2014 COMBINED DTaP,Tdap,Td (7 - Td or Tdap) 11/27/2024 11/27/2014, 11/23/2008, 02/06/2005, Additional history exists INFLUENZA VACCINE (#1) 2025 0, 08/13/2019, 08/27/2018, Additional history exists COVID-19 VACCINE (2024- season) 2025 02/25/2021 HIB VACCINES Completed 02/06/2005, 04/06, 02/29/2004, Additional [...] [place] [id number] [facility] [place] [id number] [facility] [place] [employer] [facility] [employer] [facility] [employer] [facility] * Guarantor: FIDEL OCHOA Account Type Relation to Patient Date of Phone Billing Address Third [employer] [place] [address] [facility] INSURANCE [facility] Care Teams Fibre Cement Moulder Relationship Specialty Start Date End Date Zo Hatfield MD PCP - General Pediatrics 06/24/18 Additional Source Comments The information contained in this document represents components of the legal health record. It is not the complete legal health record.[facility]
--- OUTSIDE RECORDS SUMMARY | 2025-08-21 09:28 | XMS_ITS | Encounter Summary ---
Author Organization [facility] Address [address] [place] [address] Phone Care Team Providers Care Table Keeper Name Role Phone Bailey Isaac NP Primary Care Provider Zo Hatfield Unavailable Bailey Isaac NP Unavailable [phone] Danial Contreras MD Unavailable [phone] Encounter Details Date Type Department Care Team (Late st Contact Info) Description 04/14/2024 Abstract Health Information Management [address] [place] [phone] Provider, Unable To Verify [address] [place] [address] Social History Tobacco Use Types Packs/Day Years [...] on filedocumented in this encounter Care Teams Table Keeper Relationship Specialty Start Date End Date Bailey Isaac NP [address] [place] [address] PCP - General 03/14/24 Zo Hatfield [address] [place] [address] PCP - Insurance PCP 12/31/15 Bailey Isaac NP [address] [place] [address] PCP - Clinical PCP 03/21/22 Danial Contreras MD [address] [place] [address] HC Imagery Analyst 04/05/24 documented as of this encounter
--- OUTSIDE RECORDS SUMMARY | 2025-08-21 09:28 | XMS_ITS | Encounter Summary ---
Author Organization [facility] Address [address] [place] [address] Phone Care Team Providers Care Allergy Specialist Name Role Phone Bailey Isaac NP Primary Care Provider Encounter Details Date Type Department Care Team (Late st Contact Info) Description 11/29/2009 Documentation [facility] Family Medicine [facility] [place] [address] Family Medicine, Physician [facility] [place] [address] Social History Tobacco Use Types Packs/Day Years [...] on filedocumented in this encounter Care Teams Allergy Specialist Relationship Specialty Start Date End Date Bailey Isaac NP [address] [facility] [place] [address] PCP - General Pediatrics 08/26/21 11/19/24 documented as of this encounter
--- OUTSIDE RECORDS SUMMARY | 2025-08-21 09:29 | XMS_ITS | Encounter Summary ---
Author Organization [facility] Address [address] [place] [address] Phone Care Team Providers Care Trim Master Operator Name Role Phone Bailey Isaac NP Primary Care Provider Encounter Details Date Type Department Care Team (Late st Contact Info) Description 03/24/2018 Conversion Encounter [facility] [address] [place] [address] Danial Brooks MD [address] [place] [address] Social History Tobacco Use Types Packs/Day Years [...] on filedocumented in this encounter Care Teams Trim Master Operator Relationship Specialty Start Date End Date Bailey Isaac NP [address] [place] [address] PCP - General Pediatrics 10/22/21 1/15/25 documented as of this encounter
--- OUTSIDE RECORDS SUMMARY | 2025-08-21 09:29 | XMS_ITS | Clinical Summary ---
Author Organization [facility] Address [address] [place] [address] Phone Care Team Providers Care Bread Supervisor Name Role Phone Bailey Isaac NP Primary Care Provider [phone] Zo Hatfield Unavailable Bailey Isaac NP Unavailable Danial Contreras MD Unavailable [phone] Allergies Active Allergy Reactions Criticality Noted Date Comments House Dust 03/27/2025 Penicillins 03/27/2025 Medications escitalopram oxalate (LEXAPRO ORAL) See José Manuel calvillo, Entered: 04/12/22 11:52:00 EDT 04/12/2022 Active spironolactone (Aldactone) 50 mg tablet Dose: 50 mg, Dose Amount: 1 tab, PO, daily, Entered: 11/21/18 10:43:09 EST 11/21/2018 Active tretinoin (Retin-A) 0.01 % gel Dose Amount: 1 appl, TOP, daily, Entered: 06/06/17 11:09:00 EDT 06/06/2017 Active Active Problems Problem Noted Date Diagnosed Date 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 03/26/2025 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 Immunizations Immunization Administration Dates Next Due Influenza, Unspecified 07/16/2020 Pfizer Purple Cap SARS-CoV-2 03/19/2021,02/26/20 21 Social History Tobacco Use Types Packs/Day Years Used Date Smoking Tobacco: Never Passive Smoke Exposure: Never Smokeless Tobacco: Never Tobacco Cessation:Counseling Given: Not Answered Comments Unknown Sex and Gender Information Value Date Recorded Sex Assigned at Female 03/20/2025 11:14 AM EDT Legal Sex Female 11:19 PM EDT Gender Identity Female 03/20/2025 11:14 AM EDT Sexual Orientation Straight 03/20/2025 11 :14 AM EDT Last Filed Vital Signs Vital Sign Reading Time Taken Comments Blood Pressure 111/67 11/08/2023 5:15 PM EST Pulse 73 03/27/2025 10:42 AM EDT Temperature 36.6 C (97.9 F) 03/27/2025 10:42 AM EDT Respiratory Rate 19 11/08/2023 5:15 PM EST Oxygen Saturation 99% 03/27/2025 10: 42 AM EDT Inhaled Oxygen Concentration - - Weight 71.6 kg (157 lb 13.6 oz) 024 10:05 AM EDT Height 157.8 cm (5' 2.13 ) 03/28/2024 1 0:05 AM EDT Body Mass Index 28.75 03/28/2024 10:05 AM EDT Plan of Treatment Health Maintenance Due Date Last Done Comments Chlamydia and Gonorrhea Screening 2003 HIV Screening 2003 Anemia Screening 2015 Hepatitis C Screening 2021 Meningococcal B Vaccine (2 of 2 - Trumenba SCDM 2-dose series) 07/21/2023 03/20/2023, 05/19/2022 DTaP/Tdap/Td Vaccines (7 - Td or Tdap) 11/27/2024 11/27/2014, 11/23/2008, 02/06/2005, Additional history exists Influenza Vaccine (#1) 2025 , 07/31/2023, 08/17/2022, Additional history exists Hepatitis B Vaccines Completed 08/01/2004, 2003, 2003 HIB Vaccines Completed 02/06/2005, 04/06, 02/29/2004, Additional history exists Pneumococcal Vaccine: Pediatrics (0 to 5 Years) and At-Risk Patients (6 to 49 Years) Aged Out 03/13/2005, 08/16/2004, 03/25/2004, Additional history exists No longer eligible based on patient's age to complete this topic MMR Vaccines Completed 11/18/2007, 11/08/2004 Varicella Vaccines Completed 11/18/2007, 11/08/2004 IPV Vaccines Completed 11/23/2008, 07/07, 03/25/2004, Additional history exists HPV Vaccines Completed 06/01/2015, 01/04, 11/27/2014 Hepatitis A Vaccines Completed 12/03/2018, 12/25/19 18 Meningococcal Vaccine Completed 12/04/2019, 015 Rotavirus Vaccines Aged Out No longer eligible based on patient's age to complete this topic Insurance [employer] JULIA SIMENTAL [id number] [employer] [place] Care Teams Bread Supervisor Relationship Specialty Start Date End Date Isaac, Bailey Cuevas NP [address] [place] [address] PCP - General 03/14/24 Zo Hatfield [address] [place] [address] [place] [address] PCP - Insurance PCP 12/31/15 Isaac, Bailey Cuevas NP [address] [place] [address] PCP - Clinical PCP 03/21/22 Danial Contreras MD [address] [place] [address] Sample Hand 04/05/24
--- OUTSIDE RECORDS SUMMARY | 2025-08-21 09:29 | XMS_ITS | Clinical Summary ---
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 Doing electrolysis. Labs reassuring. Evaluated by pedi endocrinology. Prescribed [id number] lo and spironolactone. Assessment & Plan (03/20/2023 1:50 PM EDT): Considering coming off of spironolactone, will discuss with toppiece chopper. 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 [...] syndrome gene, also called the PDS or [id number] gene, in patients who have unilateral or [...] [place] and also had a consult with [facility] cardiology, per parents' preference - holter [...] Encounters Date Type Department Care Team Description 06/10/2025 Refill [facility] [address] [place], [place] [id number] Bailey Isaac NP Hirsutism from Last 3 Months Immunizations Immunization Administration [...] 80 05/31/2017 12:00 AM EDT Temperature 36.1 C (97 F) 07/20/2022 10:51 AM EDT Respiratory Rate - [...] enba SCDM 2-dose series) 07/21/2023 03/20/2023, 05/19/2022 DTaP,Tdap,and Td Vaccines (7 - Td or Tdap) 11/27/2024 11/27/2014, 11/23/2008, 02/06/2005, Additional history exists Influenza Vaccines (#1) 2025 08/13/20 24, 07/31/2023, 08/17/2022, Additional history exists COVID-19 Vaccine (2024-12 6 season) 2025 11/12/2021, 03/19/2021, 02/25/2021 Hepatitis B Vaccines Completed 08/01/2004, 2003, 2003 HIB Vaccines Completed 02/06/2005, 04/06, 02/29/2004, Additional history exists Pneumococcal Vaccine Completed 03/13/2005, 08/16/2004, 03/25/2004, Additional history exists MMR Vaccines Completed 11/18/2007, 11/08/2004 Varicella Vaccines Completed 11/18/2007, 11/08/2004 IPV Vaccines Completed 11/23/2008, 07/07, 03/25/2004, Additional history exists HPV Vaccines Completed 06/01/2015, 01/04, 11/27/2014 Hepatitis A Vaccines Completed 12/03/2018, 12/25/19 18 Meningococcal Vaccine Completed 12/04/2019, 015 Procedures * Due to [place] Ev[place] law, this organization might not be sharing sensitive test results. Procedure Name Priority Date/Time Associated Diagnosis Comments CHLAMYDIA AND GONORRHEA, AMPLIFIED Routine 12/04/2019 4:30 PM EST Encounter for routine child health examination without abnormal findings from Last 3 Months or Most Recently Relevant to Health Maintenance Results * Due to [place] Ev[place] law, this organization might not be sharing sensitive test results. * Chlamydia and Gonorrhea, Amplified (12/04/2019 4:30 PM EST) Chlamydia Trachomatis, DNA Probe NEGATIVE (NEG) [facility] Comment: No Chlamydia Trachomatis RNA detected in this patient's sample (REFERENCE RANGE/NORMAL VALUE: NOT DETECTED) Note: This test uses online journalist- mediated amplification method to detect rRNA from C. Trachomatis URINE GC AMP PROBE NEGATIVE (NEG) [facility] Comment: No Neisseria Gonorrhoeae RNA detected in this patient's sample (REFERENCE RANGE/NORMAL VALUE: NOT DETECTED) NOTE: This test uses online journalist-mediated amplification method to detect rRNA from N.Gonorrhoeae. [...] without risk of sexual abuse. Consult the [facility] if needed. Contact phone number . Therapeutic failure or success cannot be determined with the Aptima Combo2 assay since nucleic acid may persist following appropriate antimicrobial therapy. The Centers for Disease Control and Prevention (CDC) recommends confirmatory retesting using culture or a different nucleic acid amplification test when positive results occur, if indicated. Testing performed or reported by [facility], a Service of [facility], [address] [place] [address] Pradip Winston MD, Program Research Specialist Urine 12/04/2019 4:30 PM EST 12/04/2019 10:06 PM EST us Zo Hatfield MD LAB MICROBIOLOGY - GENERAL RASHIDA LAO Final Result [facility] from Last 3 Months or Most Recently Relevant to Health [place] [id number] [facility] [place] [address] [facility]
[2025-08-21 11:28] LABS: MANUAL DIFF FLAG NO
[2025-08-21 11:37] LABS: Hematocrit 38.4 % (37.0-47.0); Hemoglobin 12.4 g/dl (12.0-16.0); Imm Gran Abs Auto 0.02 X10*3/uL (0.00-0.03); Imm Gran Pct Auto 0.3 % (0.0-0.4); Lymphocytes Absolute Auto 2.4 X10*3/uL (1.2-4.9); Mean Corpuscular HGB Conc 32.3 g/dl (31.0-35.0); Mean Corpuscular Hemoglobin 28.7 pg (27.0-33.0); Mean Corpuscular Volume 88.9 fL (80.0-98.0); NRBC Abs Auto 0.000 X10*3/uL (0.0-0.012); NRBC Pct Auto 0.0 /100WBC (0.0-0.2); Platelet Count 271 X10*3/uL (160-400); Red Blood Count 4.32 X10*6/uL (4.20-5.50); White Blood Count 7.3 X10*3/uL (4.8-10.8)
[2025-08-21 13:59] LABS: Iron 96 mcg/dL (30-160); Percent Iron Saturation 28 % (15-50); Total Iron Binding Capacity 346 mcg/dL (228-428); Unsaturated Iron Binding 250 ug/dL
[2025-08-21 14:24] LABS: Ferritin 25 ng/mL (10-122)
== END 2025-08-21 08:54 | disposition home or self-care (01) ==
LOC: HO.WFDLDS 08:53
PROVIDERS: Visit Provider Physician Assistant Medical
DX: D64.9 Anemia, unspecified (principal)
CPT/HCPCS: 36415; 82728; 83540; 85025

== ENCOUNTER 2025-10-12 08:51 | Outpatient (AMB) | payer BC, SELFPAY ==
--- NOTE | 2025-10-12 09:07 | A.OFFPC_ITS ---
Vital Signs 10/12/25 09:11 Height 5 ft 1.6 in Weight 146 lb 8 oz BMI 27.1 BP 120/78 Blood Pressure Location Rt brachial Position Sitting Respiration 15 Pulse 85 Pulse Source Pulse Oximeter Temp 97.4 F Temp Source Temporal Artery Scan Pulse Oximetry (%) 98 Oxygen Delivery Method Room Air Intake Visit Reasons: f/u HTN, chronic conditions Intake Note: Radha presents in the office today for a medication check in and lab results. Library Assistant Required: No Is last menstrual period known: Yes Last menstrual period: 09/27/25 Post menopausal: No Patient : No Allergies Penicillins Allergy (Unknown, Verified 10/12/25 09:10) Hives Tobacco use date assessed: 10/12/25 Dental Screening Dental Screen Date: 10/12/25 Did you have a dental visit in the last 12 months?: Yes Did you have a dental problem in the last 6 months where you did not have access to dental care?: No Was dental information given to patient?: Patient has dentist HPI HPI Comments History of Present Illness Details This is a 19-year-old female with a past medical history of iron- deficiency, PCOS and generalized anxiety disorder presenting for follow up. Anxiety- taking Lexapro 5 mg daily. This is working well. Prozac caused increased anxiety. Her therapist recently left the practice, so she is looking for a new 1 through her school. She is attending [employer]. 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 She graduates in the spring. She is flying to [place] in a couple of weeks. She has flying phobia and uses lorazepam for flights. Patient noticed a tender bump on the left breast near the under arm that was there for a couple of weeks. She does not feel it anymore. Her friend's mother who is a PA checked it out and could not feel anything on exam. Great Aunt had breast cancer in her 50s. Received flu vaccine in August. ROS: Constitutional: No unexplained weight loss, fever, chills, fatigue or night sweats. Skin: No rash Psychiatric: No depression. Physical exam: Constitutional: Alert, in no distress. Respiratory: Clear to auscultation. Cardiovascular: S1 S2 regular. No murmurs. Breast: Patient declined day care director. No visible rashes or discoloration. No axillary adenopathy bilaterally. No palpable breast or axillary masses bilaterally. Nontender bilaterally. No nipple inversion or discharge bilaterally. Psychiatric: Normal mood and affect [facility] Medical History (Updated 06/16/25 @ 08:58 by CARLOS MANUEL Tinajero) Mild anemia Routine physical examination Screening for cardiovascular condition Tinea versicolor Acne vulgaris Enlarged vestibular aqueduct of left ear Flying phobia AIDEN (generalized anxiety disorder) PCOS (polycystic ovarian syndrome) Low iron Surgical History H/O wisdom tooth extraction H/O knee surgery History of hymenectomy History of ankle surgery H/O wrist surgery Family History Maternal Grandmother Anxiety Mother Anxiety Maternal Aunt Congenital heart defect Maternal Grandfather Heart attack Family/Other Breast cancer Other FH: mental illness Social History (Updated 10/12/25 @ 09:11 by Daily Mejia [facility]) Housing: House Alcohol intake: current Patient Tobacco Use Status: Never used Tobacco e-Cigarette/Vaping Use: Never Used Second Hand Smoke Exposure: No Use of substances other than those prescribed or required for medical reasons: No Patient : No service: No Current occupational status: student Current occupational exposures/hazards: No Cognitive needs: No Hearing needs: Yes (Hearing loss left ear) Vision needs: No Female Reproductive History Menstrual Date of last menstrual period: 09/27/25 Questionnaire Thrive Questionnaire Date Thrive assessed: 01/05/25 I am a: Patient What is your living situation today?: I have a steady place to live Within the past 12 months, did the food you bought not last and you didn't have the money to get more?: Never true Within the past 12 months, did you worry whether your food would run out before you got money to buy more?: Never true Do you have trouble paying for medicines?: No Do you have trouble getting transportation to medical appointments?: No Do you have trouble paying your heating and electricity bill?: No Do you have trouble taking care of your child, family member or friend?: No Do you have trouble with day-to-day activities such as bathing, preparing meals, shopping, managing finances, etc.?: No Are you currently unemployed and looking for a job?: No Are you interested in more education?: Yes Please select the resources that you would like help with: None Currently or been in a relationship where the following occur: No concerns reported THRIVE Score: 0 AIDEN-7 AMB Questionnaire AIDEN-7 Date AIDEN - 7 assessed: 04/06/25 Source: Developed by Drs. Danial Fitzpatrick, Candi Aldaan, Sundeep armando nd colleagues, with an educational batool from [employer]. Physical exam (Primary Care) Vital Signs: Last Vital Signs Temp 97.4 F 10/12/25 09:11 Pulse 85 10/12/25 09:11 Resp 15 10/12/25 09:11 BP 120/78 10/12/25 09:11 Pulse Ox 98 10/12/25 09:11 Oxygen Delivery Method Room Air 10/12/25 09:11 BMI result Body Mass Index 27.1 Tobacco/Smoking Status: Tobacco use Status Tobacco use date assessed 10/12/25 10/12/25 09:15 Patient Tobacco Use Status Never used Tobacco 10/12/25 09:11 e-Cigarette/Vaping Use Never Used 10/12/25 09:11 Thrive Assessment: Date of Thrive Assessment Date Thrive assessed 01/05/25 10/12/25 09:07 Currently or been in a relationship where the following occur: No concerns reported Coding Level of Care Code Est Pt Level 4 (44872) Complex visit Add On G2211 Diagnoses Flying phobia F40.243 AIDEN (generalized anxiety disorder) F41.1 Mass of upper outer quadrant of left breast N63.21 Breast mass location: upper outer quadrant Assessment & Plan Assessment & Plan (1) Flying phobia: Code(s): F40.243 - Fear of flying Category: Medical Plan: Renewed prescription for lorazepam to use as needed for flying since she will be traveling to [place]. Do not drive, operate heavy machinery or drink alcohol when taking this medication. (2) AIDEN (generalized anxiety disorder): Code(s): F41.1 - Generalized anxiety disorder Category: Medical Plan: Continue Lexapro 5 mg daily. She is going to switch to another therapist since her provider left the practice. (3) Left breast lump: Code(s): N63.20 - Unspecified lump in the left breast, unspecified quadrant Qualifiers: Breast mass location: upper outer quadrant Qualified Code(s): N63.21 - Unspecified lump in the left breast, upper outer quadrant Plan Patient reported it resolved, and there are no abnormal findings on her physical exam today. This may have been a cyst or lymph node which resolved. Patient will follow up if she experiences recurrent lump or pain. Medications: New lorazepam (Ativan) 0.5 mg PO Q4-6H PRN 4 tabs 0RF flying phobia Refilled escitalopram oxalate 5 mg PO DAILY 90 tabs 3RF
[2025-10-12 09:11] VITALS: BP 120/78; PULSE 85; RESP 15; TEMP 36.3; O2SAT 98; BMI 27.1
== END 2025-10-12 09:35 | disposition home or self-care (01) ==
LOC: HO.HMCFM 08:52
PROVIDERS: PCP Physician Assistant Medical; Visit Provider Physician Assistant Medical
DX: F40.243 Fear of flying (principal); F41.1 Generalized anxiety disorder; N63.21 Unspecified lump in the left breast, upper outer quadrant